=== PATIENT | male | born 1955 | race Caucasian/White ===

== ENCOUNTER 2017-09-05 22:32 | Inpatient (IN) | payer OTHER ==
[~2017-09-05 22:32] MED LIST: ISOVUE-370 76%-LOCM 1 ML ONE
[2017-09-05] MEDS ORDERED: Promethazine HCl 25 MG/ML VIAL ONE (22:56)
[2017-09-05] MEDS ORDERED: Ondansetron ODT 8 MG TAB ONE (22:56)
--- NOTE | 2017-09-05 23:14 | RAD ---
PORTABLE CHEST: 09/05/17 HISTORY: Lung cancer. On chemotherapy. No comparison chest films available. There is a mass density in the right lower lung. This would correspond to the history of lung cancer. The left lung appears clear. there is no evidence of vascular congestion or edema. Heart size within normal range. IMPRESSION: Opacity overlying the right lower lung is consistent with known history of lung cancer. Associated in flammatory infiltrate cannot be excluded. POS: [facility]
[2017-09-05 23:16] LABS: #Eosinphils 0.1 thou/uL (0.0-0.7); #Lymphocytes 0.7 thou/uL (1.20-3.40); #Monocytes 0.4 thou/uL (0.11-0.59); #Neutrophils 8.4 thou/uL (1.40-6.50); %Basophils 0.4 % (0.0-1.0); %Eosinophils 0.7 % (0.0-10.0); %Lymphocytes 7.3 % (21.0-51.0); %Monocytes 3.9 % (0.0-10.0); %Neutrophils 87.7 % (42.0-75.0); Mean Corpuscular HGB CONC 33.1 g/dL (32.0-36.0); Mean Corpuscular Hemoglobin 29.2 pg (27.0-31.0); Mean Corpuscular Volume 88.1 fl (80.0-94.0); Mean Platelet Volume 6.4 fL (7.4-10.4); Platelet Count 317 thou/uL (130-400); RBC Distribution Width 12.3 % (11.5-14.5); Red Blood Cell (RBC) Count 4.82 mill/uL (4.70-6.10); White Blood Cell (WBC) Count 9.6 thou/uL (4.8-10.8)
[2017-09-05 23:19] LABS: ALT (SGPT) 24 U/L (8-55); AST (SGOT) 23 U/L (5-34); Alkaline Phosphatase 89 U/L (40-150); Anion Gap 15 mmol/L (10-20); BUN (Urea Nitrogen) 19 mg/dL (8.4-25.7); Bilirubin, Total 1.5 mg/dL (0.2-1.2); CK (CPK) 56 U/L (30-200); Calc. Creatinine Clearance 0 mL/min (70-130); Calcium 9.9 mg/dL (7.8-10.44); Carbon Dioxide 30 mmol/L (22-29); Chloride 92 mmol/L (98-107); Estimated GFR-MDRD Greater than 90; Globulin 3.8 g/dL (2.4-3.5); Glucose 139 mg/dL (70-105); Lipase 20 U/L (8-78); Potassium 5.1 mmol/L (3.5-5.1); Protein, Total 7.8 g/dL (6.0-8.3); Sodium 132 mmol/L (136-145)
--- NOTE | 2017-09-05 23:57 | CT ---
CT ABDOMEN AND PELVIS WITH IV CONTRAST: 09/05/17 History: Lung cancer on chemo. Abdominal pain, constipation Images through the lung bases show patchy atelectasis and/or infiltrate in the right lung base. Liver shows a low density lesion in the posterior left lobe of the liver along the posterior margin m easuring up to 2 cm. There are other scattered low density foci which are subcentimeter and indetermi zechariah seen throughout the right lobe. Spleen and pancreas are unremarkable. Stomach unremarkable. Adr enal glands unremarkable. Review of the kidneys shows no evidence of hydronephrosis. There is a 2.8 cm cyst posterior left kidn ey. There is a complex lesion involving the mid right renal cortex measuring 1.8 cm. There is enhancing n odule associated with this low density lesion. This is therefore a complex and suspicious lesion. Small bowel loops are normal caliber. The colon is distended and appears predominantly fluid filled although there is evidence of stool in the left colon. No evidence of mural thickening or edema. Urinary bladder shows mild bladder wall thickening which is nonspecific. Prostate is upper normal siz e. Aorta and retroperitoneum appear unremarkable. IMPRESSION: 1. Patchy atelectasis and/or infiltrate in the right lung base. 2. A complex suspicious lesion involving the right kidney. There is an enhancing nodule associat ed with this low density lesion. Neoplasm cannot be excluded. 3. Nonspecific fluid filled distention of the right and transverse colon. Left colon has scatter ed stool and gas without significant distention. 4. Indeterminate liver lesions. Mets not excluded. 5. Mild urinary bladder wall thickening. POS: [facility]
[2017-09-06] MEDS ORDERED: D5 1/2 NS w/20 mEq KCL 1,000 ML IV SCH (01:45)
[2017-09-06] MEDS ORDERED: Ondansetron ODT 4 MG TAB SL PRN (01:45)
[2017-09-06] MEDS ORDERED: Promethazine HCl 25 MG/ML VIAL SLOW IVP PRN (01:45)
[2017-09-06] MEDS ORDERED: Ondansetron HCl/PF 4 MG/2 ML Vial IVP PRN ×2 (01:45→06:55)
[2017-09-06] MEDS ORDERED: Milk Of Magnesia 30 ML UDCUP PO PRN (01:48)
[2017-09-06] MEDS ORDERED: Acetaminophen 325 MG TAB PO PRN (01:48)
[2017-09-06] MEDS ORDERED: HYDROcodone/Acetaminophen 5/325 mg Tablet PO PRN (01:48)
[2017-09-06] MEDS: Morphine IR Tab 15 MG TAB PO PRN ×2 (02:37→19:16)
[2017-09-06 02:48] VITALS: BMI 21.9
[2017-09-06 04:19] LABS: #Lymphocytes 0.7 thou/uL (1.20-3.40); #Monocytes 0.2 thou/uL (0.11-0.59); #Neutrophils 5.9 thou/uL (1.40-6.50); %Basophils 0.1 % (0.0-1.0); %Eosinophils 0.4 % (0.0-10.0); %Lymphocytes 10.1 % (21.0-51.0); %Monocytes 3.6 % (0.0-10.0); %Neutrophils 85.8 % (42.0-75.0); Hemoglobin 11.9 g/dL (14.0-18.0); Mean Corpuscular HGB CONC 33.4 g/dL (32.0-36.0); Mean Corpuscular Hemoglobin 29.4 pg (27.0-31.0); Mean Corpuscular Volume 88.2 fl (80.0-94.0); Mean Platelet Volume 6.3 fL (7.4-10.4); Platelet Count 254 thou/uL (130-400); RBC Distribution Width 12.2 % (11.5-14.5); Red Blood Cell (RBC) Count 4.05 mill/uL (4.70-6.10); White Blood Cell (WBC) Count 6.8 thou/uL (4.8-10.8)
[2017-09-06 04:38] LABS: Anion Gap 11 mmol/L (10-20); BUN (Urea Nitrogen) 16 mg/dL (8.4-25.7); Calc. Creatinine Clearance 103 mL/min (70-130); Calcium 8.3 mg/dL (7.8-10.44); Carbon Dioxide 28 mmol/L (22-29); Chloride 97 mmol/L (98-107); Estimated GFR-MDRD Greater than 90; Glucose 130 mg/dL (70-105); Potassium 4.3 mmol/L (3.5-5.1); Sodium 132 mmol/L (136-145)
[2017-09-06] MEDS: Senokot 8.6 MG TAB PO PRN ×2 (06:00→21:17)
[2017-09-06] MEDS ORDERED: Eucerin (Mineral Oil/Petrolatum,White) 30 gm Jar TOP PRN (06:54)
[2017-09-06] MEDS ORDERED: Diabetic Tussin 200 MG/10 ML UDCUP PO PRN (06:54)
[2017-09-06] MEDS ORDERED: Sodium Chloride 0.65% Nasal 44 ML BOT EA NARE PRN (06:54)
[2017-09-06] MEDS ORDERED: Loratadine 10 MG TAB PO PRN (06:54)
[2017-09-06] MEDS ORDERED: Chloraseptic Spray 180 ml Bottle PO PRN (06:54)
[2017-09-06] MEDS ORDERED: hydrALAZINE 20 MG/ML VIAL SLOW IVP PRN (06:54)
[2017-09-06] MEDS ORDERED: Fleet Enema 133 ML BOT PR PRN (06:54)
[2017-09-06] MEDS ORDERED: Mag-Al 1200 mg/1200 mg/30 ML UDCUP PO PRN (06:54)
[2017-09-06] MEDS ORDERED: Bisacodyl 10 MG SUPP PR PRN (06:54)
[2017-09-06] MEDS ORDERED: Temazepam 15 MG CAP PO PRN (06:54)
[2017-09-06] MEDS ORDERED: Artificial Tears 18 DROP/0.9 ML EA EYE PRN (06:54)
[2017-09-06] MEDS ORDERED: Ondansetron ODT 4 MG TAB PO PRN (06:55)
[2017-09-06] MEDS ORDERED: Promethazine HCl 25 MG/ML VIAL IM/IV PRN (06:56)
[2017-09-06] MEDS ORDERED: Fleet Enema 133 ML BOT PR SCH (08:30)
[2017-09-06] MEDS: Polyethylene Glycol 3350 17 GM Packet PO SCH (08:44)
[2017-09-06] MEDS: Docusate 100 MG CAP PO SCH ×2 (08:45→21:17)
[2017-09-06] MEDS: Enoxaparin Sodium 40 MG/0.4 ML SYRINGE SC SCH (08:45)
[2017-09-06] MEDS: Dextrose 5 % And 0.9 % NaCl 1,000 ML IV SCH ×2 (08:54→17:47)
[2017-09-06] MEDS ORDERED: Dexamethasone 4 MG TAB PO SCH (09:00)
[2017-09-06] MEDS ORDERED: Finasteride 5 MG TAB PO SCH ×2 (09:00→21:00)
[2017-09-06] MEDS ORDERED: Tamsulosin HCl 0.4 MG CAP PO SCH ×2 (09:00→21:00)
--- NOTE | 2017-09-06 12:29 | SS ---
PRIMARY CARE PHYSICIAN: The patient's primary care physician in [place], [place]. PRIMARY ONCOLOGIST: At [facility]. DATE OF ADMISSION: 09/06/2017 at 1:22 a.m. REASON FOR ADMISSION: Nausea, vomiting, dehydration, and constipation. HISTORY OF PRESENT ILLNESS: This is a 62-year-old male, who has recent diagnosis of nonsmall cell regina ng cancer, which was diagnosed with a bronchoscopy. Subsequently, the patient was following at [facility]. He reports that he received a 30 cycles of radiation therapy and during that period, the patient received weekly 4 cycles of chemotherapy. The patient had a strong chemotherapy given o n last Friday. The patient was taking short-acting morphine sulfate and long-acting morphine sulfat e. The patient was feeling constipated. His last good bowel movement was on Friday and he had only scant amount of bowel movement. He was feeling generalized vague, lower abdominal discomfo rt. His appetite was reduced. He also lost several pounds since diagnosis of lung cancer. He was n ot having any fever or chills. He denies any black tarry stool. He denies any vomiting of blood. H e denies any nausea. He denies any chest pain, palpitations, shortness of breath. The patient reports that he is following at [facility] and he was told that his cancer is shrinking and his next chemotherapy appointment is 2 weeks. The patient also reports that he was told that he has spot over his kidney. This patient came to emergency room last night with complaint of constipation, nausea, and vomiting. In the emergency room, he was completely hemodynamically stable. He had CT of the abdomen and pelvi s, which showed right lower lobe atelectasis, complex lesion over right kidney and nonspecific fluid filled distention of right and transverse colon, mild urinary bladder wall thickening, though patient denies any UTI symptoms. His chest x-ray in the emergency room showed right lower lung mass consist ent with his history of lung cancer. He was afebrile in the emergency room. In the emergency room, he was given IV fluid, Phenergan, Zofran, and subsequently he was admitted to Oncology floor. When this morning I saw at that time, the patient was completely asymptomatic. He was not having any significant lower abdominal pain. He did not have any nausea and vomiting, though he does not have any bowel movement yet. He received some stool softener earlier, he was getting IV fluid. REVIEW OF SYSTEMS: The following complete review of systems was negative, unless otherwise mentioned in the HPI or below: Constitutional: Weight loss or gain, ability to conduct usual activities. Skin: Rash, itching. Eyes: Double vision, pain. ENT/Mouth: Nose bleeding, neck stiffness, pain, tenderness. Cardiovascular: Palpitations, dyspnea on exertion, orthopnea. Respiratory: Shortness of breath, wheezing, cough, hemoptysis, fever or night sweats. Gastrointestinal: Poor appetite, abdominal pain, heartburn, nausea, vomiting, constipation, or diarr hea. Genitourinary: Urgency, frequency, dysuria, nocturia. Musculoskeletal: Pain, swelling. Neurologic/Psychiatric: Anxiety, depression. Allergy/Immunologic: Skin rash, bleeding tendency. Please see my HPI for pertinent positive and negative. All other review of systems reviewed and nega tive except as mentioned in the HPI. PAST MEDICAL HISTORY: Hypertension, benign enlargement of prostate, history of lung cancer, non-smal l cell lung cancer, status post radiation therapy and ongoing chemotherapy, and mitral regurgitation. PAST SURGICAL HISTORY: Appendicectomy. PAST PSYCHIATRIC HISTORY: Reviewed and negative. SOCIAL HISTORY: The patient is and lives at home with family. No history of tobacco, alcoho l, or illicit drug abuse. FAMILY HISTORY: No strong family history of premature coronary artery disease, stroke or cancer. ALLERGIES: No known drug allergy. CURRENT HOME MEDICATIONS: Proscar 5 mg p.o. daily, morphine sulfate extended release 60 mg twice jin ly, Flomax 0.4 mg p.o. daily, lisinopril 40 mg p.o. daily, Decadron 4 mg twice daily after chemo, mor phine sulfate immediate release 15 mg q.6 hourly p.r.n., Zofran ODT 8 mg q.8 hourly p.r.n. EMERGENCY ROOM COURSE: The patient has received Phenergan 25 mg, IV fluid 2 liter, and Zofran 8 mg. PHYSICAL EXAMINATION: VITAL SIGNS: On arrival, blood pressure 124/94, pulse 98, respiratory rate 20, temperature 98.2, sat uration 95% on room air, weight 71.2 kilograms. GENERAL: The patient is currently alert, awake, no obvious acute distress. HEAD: Normocephalic, atraumatic. EYES: Pupils round, reactive to light. Extraocular muscle intact. ENT: Oropharynx within normal limits. Moist mucous membranes. No oral lesion, no pharyngeal erythe ma, no exudate. NECK: Supple, no JVD, no thyromegaly, no carotid bruit. No jugular venous distention. LUNGS: Clear to auscultation without any rhonchi or rales. CARDIAC: S1 and S2 regular. Systolic murmur present parasternally as well as at apex. No gallop, n o rub. ABDOMEN: Soft, bowel sounds present, lower abdominal discomfort noted. No peritoneal sign, no guard ing, no rigidity, no rebound. BACK: Unremarkable. No CVA tenderness. EXTREMITIES: Upper extremity passive movement of all joints are normal. Lower extremity, no edema. Good peripheral pulsation. SKIN: No skin rash. HEMATOLOGIC: No lymphadenopathy. NEUROLOGIC: The patient is alert, oriented x3. Cranial nerves II-XII intact. Motor and sensation w ithin normal limits. No focal neurological deficit noted. SIGNIFICANT LABORATORY DATA: Chest x-ray showing right-sided lung mass consistent with history of regina ng mass. CT of the abdomen and pelvis showing at right atelectasis complex lesion in the right kidne y, which is all chronic per patient. Nonspecific fluid filled distention of colon. No small-bowel o bstruction. CBC: WBC is 9.6, hemoglobin 14.0, platelet 317, and repeated as CBC is also unremarkable, though hem oglobin 11.9 after hydration. BMP: Sodium 132, potassium 5.1, chloride 92, carbon dioxide 30, anion gap 15, BUN 19, creatinine 0.8 3, glucose 139, calcium 9.5. LFT: AST 23, ALT 24, alkaline phosphatase 89, albumin 4.0, lipase 20, and repeat BMP: Sodium 132 an d chloride 97. IMPRESSION: 1. Severe constipation without any obstruction likely due to opioid induced. The patient will be gi marcel Fleet enema now and we will continue to give him stool softener. I instructed this patient to ta ke MiraLax, Colace, Milk of Magnesia stool softener daily basis while on chronic narcotic therapy. A t this point, the patient does not have any acute abdomen and if after Fleet enema, the patient feels better then we will consider discharging him home later on today. 2. Complex lesion on the right kidney. Per patient, he was told at [facility] that he has this typ e of lesion. I advised him to follow up with his oncologist at [facility]. Here we have consulted Dr. Cote as well for opinion, but patient prefers everything to be done at [facility], even if he needs Urology then he will prefer at [facility] 3. Dehydration. The patient already received IV fluid and we will continue IV fluid until patient i s in hospital. 4. 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 5. Anemia, normocytic, normochromic. The patient will continue multivitamin therapy. 6. History of lung cancer on chemotherapy. He has finished radiation therapy at [facility]. He is following at [facility]. He wants to follow up with their, here locally Dr. Cote is consulted. 7. Benign enlargement of prostate. He will continue his Proscar and Flomax as per home dosage. 8. Hypertension. I advised him to take lisinopril 40 mg p.o. daily, which he is taking at home if b lood pressure permits. I advised him to hold blood pressure medication if blood pressure is less natalie n 120. 9. Mitral regurgitation. The patient reports that he is planned for mitral valve replacement as an outpatient basis. 10. Deep venous thrombosis prophylaxis. Lovenox 40 mg subcu daily. 11. Gastrointestinal prophylaxis. Pepcid 20 mg b.i.d. CODE STATUS: The patient is FULL CODE. The patient is making his decision by himself. Disposition plan likely later on today. DATE OF ADMISSION: 09/06/2017 at 1:22 p.m. DATE OF DISCHARGE: 09/06/2017 DISCHARGE DISPOSITION: Home. PRIMARY DISCHARGE DIAGNOSES: Constipation due to opiate therapy, dehydration, hyponatremia, and comp anup lesion over right kidney. SECONDARY DISCHARGE DIAGNOSES: Lung cancer, benign enlargement of prostate, chronic pain medication, history of lung cancer on chemotherapy, hypertension, and benign enlargement of prostate. PRIMARY PROCEDURE/OPERATION: None. RADIOLOGICAL INVESTIGATIONS: CT of the abdomen and pelvis. SIGNIFICANT LABORATORY DATA: Please see above. TEST RESULTS PENDING ON DISCHARGE: None. DISCHARGE MEDICATION: The patient will continue all his home medication including dexamethasone 4 mg p.o. b.i.d., Colace 100 mg p.o. b.i.d., morphine sulfate IR 15 mg q.6 hourly p.r.n., morphine sulfat e 60 mg extended release q.12 hourly, Zofran 8 mg q.8 hours p.r.n., MiraLax 17 grams p.o. daily, Pros car 5 mg p.o. daily, Flomax 0.4 mg p.o. daily, and lisinopril 40 mg p.o. daily. CONTRAINDICATIONS: None. CODE STATUS: FULL CODE. INPATIENT OCTAVE BOARD ASSEMBLER: Dr. Cote. TEST RESULT PENDING ON DISCHARGE: None. ALLERGIES: No known drug allergy. DISCHARGE PLAN: Post hospital, the patient will follow up with his primary care physician and oncolo gist at [facility]. HOSPITAL COURSE: Please see HPI from above. If patient feels better with current management plan an d treatment, then he will be discharged home later on today.
--- NOTE | 2017-09-06 18:26 | CON ---
DATE OF CONSULTATION: 09/06/2017 REASON FOR CONSULTATION: Non-small cell lung cancer. HISTORY: This is a 62-year-old male who was diagnosed I believe non-small cell carcinoma o f the lung at [facility]. He was initially treated with weekly chemotherapy and radiation therapy and was recently given chemotherapy with full dose Taxol, carboplatin and Tecentriq. The pat genia is also taking morphine for pain control and was taking Zofran at home for nausea. He was admit molly with nausea, vomiting yesterday. Currently, he is on 4 mg of Zofran p.r.n. and Phenergan. I do not really have detailed information on this patient. PHYSICAL EXAMINATION: GENERAL: The patient is alert and oriented. HEENT: Unremarkable. EYES: Extraocular movements intact. Pupils equal in size. NECK: No thyromegaly. LYMPH NODES: Not palpable in cervical, supraclavicular, axillary and inguinal areas. SKIN: No petechiae. No purpuric spots. CHEST: No deformity. LABORATORY DATA: CBC shows WBC of 6800 with hemoglobin of 11.9 grams and platelet count of 254,000. Chemistry profile showed normal BUN and creatinine and calcium. Electrolytes are also unremarkable. ASSESSMENT AND RECOMMENDATIONS: This patient has nausea and vomiting is likely related to chemothera py and morphine. He should be managed symptomatically. I will change his Zofran to 8 mg q.8 with de xamethasone 5 mg given with each dose of Zofran. If nausea, vomiting is not controlled, he might nee d MRI of the brain. This patient will continue his care at [facility].
[2017-09-06] MEDS: ONDANSETRON HCL IVPB SCH (21:14)
[2017-09-06] MEDS: SODIUM CHLORIDE 0.9% IVPB SCH (21:14)
[2017-09-06] MEDS: DEXAMETHASONE IVPB SCH (21:14)
[2017-09-06] MEDS: Famotidine 20 MG TAB PO SCH (21:18)
[2017-09-07] MEDS: Dextrose 5 % And 0.9 % NaCl 1,000 ML IV SCH (06:55)
[2017-09-07] MEDS: ONDANSETRON HCL IVPB SCH ×2 (06:55→14:02)
[2017-09-07] MEDS: DEXAMETHASONE IVPB SCH ×2 (06:55→14:02)
[2017-09-07] MEDS: SODIUM CHLORIDE 0.9% IVPB SCH ×2 (06:55→14:02)
[2017-09-07] MEDS: Morphine IR Tab 15 MG TAB PO PRN ×2 (06:57→14:02)
[2017-09-07 08:46] VITALS: TEMP 98
[2017-09-07] MEDS: Famotidine 20 MG TAB PO SCH (09:03)
[2017-09-07] MEDS: Polyethylene Glycol 3350 17 GM Packet PO SCH (09:03)
[2017-09-07] MEDS: Docusate 100 MG CAP PO SCH (09:03)
[2017-09-07] MEDS: Enoxaparin Sodium 40 MG/0.4 ML SYRINGE SC SCH (09:04)
--- NOTE | 2017-09-07 10:42 | PDOC.PN ---
- Subjective Encounter Start Date: 09/07/17 Encounter Start Time: 09:00 Subjective: no nausea or vomiting, no abd pain -: had 2 bm's -: is amb in hallway - Objective MAR Reviewed: Yes Vital Signs & Weight: Vital Signs (12 hours) Temp Pulse Resp BP Pulse Ox 09/07/17 08:20 98.0 F 95 20 109/83 96 09/07/17 08:00 98.9 F 90 18 Weight Admit Weight 157 lb 5 oz Weight 157 lb 5 oz I&O: 09/06/17 09/07/17 09/08/17 06:59 06:59 06:59 Intake Total 450 3630 Output Total 700 950 Balance -250 2680 Result Diagrams: 09/06/17 03:53 09/06/17 03:53 Phys Exam - Physical Examination HEENT: PERRLA, moist MMs Neck: no JVD, supple Respiratory: no wheezing, no rales Cardiovascular: RRR, no significant murmur Gastrointestinal: soft, non-tender, positive bowel sounds Musculoskeletal: no edema, pulses present Neurological: non-focal, moves all 4 limbs Psychiatric: normal affect, A&O x 3 Dx/Plan (1) Nausea & vomiting Code(s): R11.2 - NAUSEA WITH VOMITING, UNSPECIFIED Status: Resolved (2) Constipation due to opioid therapy Code(s): K59.03 - DRUG INDUCED CONSTIPATION; T40.2X5A - ADVERSE EFFECT OF OTHER OPIOIDS, INITIAL ENCOUNTER Status: Acute (3) BPH (benign prostatic hyperplasia) Code(s): N40.0 - BENIGN PROSTATIC HYPERPLASIA WITHOUT LOWER URINRY TRACT SYMP Status: Chronic Qualifiers: Lower urinary tract symptom presence: symptoms absent Qualified Code(s): N40.0 - Benign prostatic hyperplasia without lower urinary tract symptoms (4) Lung cancer Code(s): C34.90 - MALIGNANT NEOPLASM OF UNSP PART OF UNSP BRONCHUS OR LUNG Status: Chronic Comment: non small cell lung cancer treated at [facility] (5) Mitral regurgitation Status: Chronic Qualifiers: Cardiac valve disease etiology: etiology unspecified Qualified Code(s): I34.0 - Nonrheumatic mitral (valve) insufficiency - Plan hemostable -: may dc home if tolerating oral diet today * .
[2017-09-07 12:16] VITALS: BP 118/74
--- NOTE | 2017-09-07 16:04 | DIS ---
DATE OF ADMISSION: 09/06/2017 DATE OF DISCHARGE: 09/07/2017 DISCHARGE DISPOSITION: To home. PRIMARY DISCHARGE DIAGNOSES: Intractable nausea and vomiting, resolved; constipation due to opioids, resolved. SECONDARY DISCHARGE DIAGNOSES: History of non-small cell lung cancer treated at [facility], chron ic mitral regurgitation, benign prostatic hypertrophy. PROCEDURES DONE DURING HOSPITALIZATION: Chest x-ray done showed opacity overlying the right lower regina ng consistent with known history of lung cancer. CT of the abdomen and pelvis done showed complex gaines spicious lesion involving the right kidney and indeterminate liver lesions, mets could not be exclude d. H&H of 12 and 36, platelet count 254, MCV is 88. Discharge BUN of 16, creatinine 0.7. INPATIENT CONSULTS: Dr. Sabillon for Oncology. DISCHARGE PLAN: Patient to follow up with his oncologist at [facility]. BRIEF COURSE DURING HOSPITALIZATION: Patient initially came to ER with complaints of nausea, vomitin g, and constipation. He was admitted to oncology floor. He has had CT of the abdomen and pelvis don e, which confirmed findings of constipation, otherwise, no other acute abnormalities were seen. The patient has known history of right kidney mass, likely metastasis of his lung cancer. He was initial ly kept n.p.o. and was slowly weaned into solid food. He was also evaluated by Dr. Sabillon. This a fternoon, he had his solid food and is hemodynamically stable. He is ambulating as well. His nausea and vomiting has completely resolved. The patient has had two bowel movements and has been advised to take Colace and MiraLax for bowel regimen when he is taking morphine for pain relief for his cance r. He is ambulating in the hallway and will be shortly discharged home. Please see a [id number] d ocumentation on [facility] for the day of discharge.
== END 2017-09-07 15:45 | disposition home or self-care (01) | DRG 392 ==
LOC: ERS 22:32 → ONC 09-06 01:22
PROVIDERS: ADMIT Internal Medicine; ATTEND Internal Medicine
DX: K59.03 Drug induced constipation (principal); C34.31 Malignant neoplasm of lower lobe, right bronchus or lung; E22.2 Syndrome of inappropriate secretion of antidiuretic hormone; Y92.89 Other specified places as the place of occurrence of the external cause; T40.2X5A Adverse effect of other opioids, initial encounter; N28.9 Disorder of kidney and ureter, unspecified; E86.0 Dehydration; E87.8 Other disorders of electrolyte and fluid balance, not elsewhere classified; N40.0 Benign prostatic hyperplasia without lower urinary tract symptoms; I34.0 Nonrheumatic mitral (valve) insufficiency; D64.9 Anemia, unspecified; I10 Essential (primary) hypertension
CPT/HCPCS: 36415; 71045; 74177; 80048; 80053; 82550; 83690; 85025; 96361; 96365; A4216; J1100; J1650; J2405; J2550; J7042; J7050; J8540

== ENCOUNTER 2017-10-03 07:53 | Inpatient (IN) | payer OTHER ==
[2017-10-03 09:06] LABS: #Lymphocytes 0.5 thou/uL (1.20-3.40); #Monocytes 0.2 thou/uL (0.11-0.59); %Basophils 0.1 % (0.0-1.0); %Eosinophils 0.5 % (0.0-10.0); %Lymphocytes 5.3 % (21.0-51.0); %Monocytes 2.6 % (0.0-10.0); %Neutrophils 91.5 % (42.0-75.0); Hemoglobin 11.9 g/dL (14.0-18.0); Mean Corpuscular HGB CONC 31.8 g/dL (32.0-36.0); Mean Corpuscular Hemoglobin 27.4 pg (27.0-31.0); Mean Corpuscular Volume 86.1 fL (78.0-98.0); Mean Platelet Volume 6.6 fL (7.4-10.4); Platelet Count 349 thou/uL (130-400); RBC Distribution Width 13.1 % (11.5-14.5); Red Blood Cell (RBC) Count 4.33 mill/uL (4.70-6.10); White Blood Cell (WBC) Count 8.7 thou/uL (4.8-10.8)
[2017-10-03 09:08] LABS: INR-International Normal Ratio 1.1; Prothrombin Time 13.9 SEC (12.0-14.7)
[2017-10-03 09:15] LABS: ALT (SGPT) 13 U/L (8-55); AST (SGOT) 16 U/L (5-34); Albumin 3.5 g/dL (3.5-5.0); Alkaline Phosphatase 82 U/L (40-150); Anion Gap 15 mmol/L (10-20); BUN (Urea Nitrogen) 14 mg/dL (8.4-25.7); Bilirubin, Total 0.8 mg/dL (0.2-1.2); CK (CPK) 58 U/L (30-200); Calc. Creatinine Clearance 0 mL/min (70-130); Calcium 9.2 mg/dL (7.8-10.44); Carbon Dioxide 28 mmol/L (22-29); Chloride 88 mmol/L (98-107); Estimated GFR-MDRD Greater than 90; Globulin 3.7 g/dL (2.4-3.5); Glucose 131 mg/dL (70-105); Potassium 4.3 mmol/L (3.5-5.1); Protein, Total 7.2 g/dL (6.0-8.3); Sodium 127 mmol/L (136-145)
[2017-10-03 09:20] LABS: CKMB 0.9 ng/mL (0-6.6); Troponin I Less than 0.010 ng/mL (< 0.028)
--- NOTE | 2017-10-03 09:42 | RAD ---
RADIOGRAPH CHEST 1 VIEW: Date: 10/03/17 Time: 0912 HOURS HISTORY: 62-year-old male with lung cancer. COMPARISON: 09/05/17. FINDINGS: There is a defibrillation paddle over the central chest, and another one overlying the left lower allan g zone. The previously described spiculated pulmonary opacity in the right lower lung zone is now lar leland. Partial silhouetting of the right hemidiaphragm, new. No pulmonary edema. There is a new, small, faint, separate infiltrate in the lateral aspect of the right upper lobe now. There is a greater deg ree of shagginess of the right mediastinal border. No pulmonary vascular engorgement. No cardiomegaly . No pneumothorax. IMPRESSION: Interval increase in size of the density at the right lower lung zone. This may represent an acute in filtrate superimposed on the known lung cancer stated in the history. Recommend clinical correlation. TELMA [] POS: [facility]
[2017-10-03] MEDS ORDERED: Morphine IR Tab 15 MG TAB PO SCH (12:30)
[2017-10-03] MEDS ORDERED: Ondansetron HCl/PF 4 MG/2 ML Vial IVP PRN (12:55)
[2017-10-03] MEDS ORDERED: Ondansetron ODT 4 MG TAB PO PRN (12:55)
[2017-10-03] MEDS ORDERED: Milk Of Magnesia 30 ML UDCUP PO PRN (12:55)
[2017-10-03 12:56] LABS: Lactic Acid 1.5 mmol/L (0.5-2.2)
[2017-10-03] MEDS ORDERED: Sodium Chloride 0.9% 1,000 ML IV SCH (13:00)
[2017-10-03 13:04] LABS: Troponin I Less than 0.010 ng/mL (< 0.028)
[2017-10-03 15:30] LABS: Troponin I 0.011 ng/mL (< 0.028)
[2017-10-03] MEDS ORDERED: Ondansetron ODT 8 MG TAB PO PRN (17:29)
--- NOTE | 2017-10-03 18:45 | HP ---
PRIMARY CARE PHYSICIAN: Dr. Mcbride. PRESENTING COMPLAINT: Nausea and vomiting. HISTORY OF PRESENT ILLNESS: Ms. Esvin Cisneros is a 62-year-old male with a past medical history of hy pertension, non-small cell cancer of the lung cyst diagnosed in April of this year and undergoing c hemotherapy and radiation therapy. He last received chemotherapy on Friday and from Friday, he s tarted with multiple episodes of nausea, vomiting, and lightheadedness. He denied chest pain, shortn ess of breath, PND, orthopnea, lower extremity edema. Due to his continued symptoms, he desired to c ome to the emergency room today. At the emergency room, he was started on IV fluids and while in the emergency room, he was found to have tachycardia with irregularly irregular rhythm. EKG showed atri al fibrillation with rapid ventricular response. He was then cardioverted, converted to normal sinus rate afterwards. The reason he was cardioverted was due to hemodynamic instability. He had some co nfusion and so he was cardioverted. Afterwards, he became alert and well oriented. The patient was admitted to medicine service for further management. PAST MEDICAL HISTORY: Hypertension, non-small cell carcinoma. PAST SURGICAL HISTORY: Appendectomy. PAST PSYCHIATRIC HISTORY: None. SOCIAL HISTORY: Denies alcohol, tobacco or illicit drug use. ALLERGIES: None. HOME MEDICATIONS: Docusate 100 mg b.i.d., ondansetron 8 mg every 8 hours p.r.n. for nausea and vomit ing, MiraLax 17 grams daily, dexamethasone 4 mg b.i.d., morphine instant release tablet 50 mg q.6 gabby rs p.r.n. for pain, morphine sulfate extended release 60 mg after 12 hours. REVIEW OF SYSTEMS: All systems reviewed and negative except as stated in HPI. PHYSICAL EXAMINATION: GENERAL: Patient is in bed, not in any acute distress. VITAL SIGNS: Vital signs are within normal limits, respiratory rate is 18, pulse rate 89, blood pres sure 140/90. HEENT: Normocephalic, atraumatic. Not pale, anicteric. Moist mucous membranes. NECK: Supple, full range of movement. CARDIOVASCULAR: S1, S2 only. Regular rate and rhythm with a systolic murmur. No rubs or gallops. ABDOMEN: Normoactive, soft, nontender, nondistended. Bowel sounds normoactive. RESPIRATORY: Vesicular breath sounds bilaterally. No wheezes or rales. NEUROLOGIC: Alert and well oriented to time, place and person. No focal deficits. PSYCHIATRIC: Normal mood and affect. SKIN: Warm, dry, well-perfused. No rashes or lesions. MUSCULOSKELETAL: No edema. LABORATORY DATA: CBC and CMP were largely unremarkable. Initial lactic acid was 2.3, but with hydra tion improved to 1.5. TSH was 0.348 with normal T4, free. IMAGING: Chest x-ray showed some right lower lobe infiltrates (likely where his old non-small cell c ancer is located. EKG showed atrial fibrillation with rapid ventricular rate, but this is before car dioversion and after cardioversion, normal sinus rhythm. ASSESSMENT AND PLAN: 1. Atrial fibrillation with rapid ventricular response. 2. Persistent nausea and vomiting. 3. Hypertension. 4. Non-small cell cancer of the lung, currently undergoing chemotherapy and radiotherapy. The patie nt came in with nausea, vomiting, and dehydration leading into atrial fibrillation with RVR, which wa s aborted by cardioversion. He is now back to normal sinus rhythm. Of note, he had a history of [facility] ral valve prolapse surgery has been deferred until he finishes his chemo and radiation therapy. PLAN: 1. Continue hydration with normal saline. 2. Zofran p.r.n. for nausea and vomiting. 3. Get echocardiogram for IV diltiazem, metoprolol p.r.n. for tachycardia. 4. Monitor on telemetry unit. 5. Cardiology consult. 6. We will continue home medications and ensure patient is on adequate p.o. bowel regimen. CODE STATUS: FULL CODE. Deep venous thrombosis prophylaxis with subcutaneous Lovenox.
[2017-10-03] MEDS ORDERED: Dronedarone HCl 400 MG TAB PO SCH (19:30)
[2017-10-03] MEDS ORDERED: Warfarin Sodium 5 MG TAB PO SCH (19:30)
[2017-10-03] MEDS: Mirtazapine 30 MG TAB PO SCH (20:24)
[2017-10-03] MEDS: Famotidine 20 MG TAB PO SCH (20:25)
[2017-10-03] MEDS: Finasteride 5 MG TAB PO SCH (20:25)
[2017-10-03] MEDS: Senokot S 8.6-50 MG TAB PO SCH (20:25)
[2017-10-03] MEDS: Metoprolol Tartrate 25 MG TAB PO SCH (20:26)
[2017-10-03] MEDS: Tamsulosin HCl 0.4 MG CAP PO SCH (20:28)
[2017-10-03] MEDS: Dexamethasone 4 MG TAB PO SCH (20:28)
[2017-10-03] MEDS: Enoxaparin Sodium 80 MG/0.8 ML SYRINGE SC SCH (20:28)
[2017-10-03] MEDS ORDERED: Docusate 100 MG CAP PO SCH (21:00)
--- NOTE | 2017-10-04 02:19 | CON ---
DATE OF CONSULTATION: 10/03/2017 HISTORY OF PRESENT ILLNESS: Blayne Mcallister is 62-year-old white male with past history of hypertension and mitral valve prolapse with significant mitral regurgitation. He was referred to [facility], and he underwent evaluation for possible placement of a percutaneous mitral clip. However, with that evaluation, it was found to have non-small cell carcinoma of the lung and he has undergone radiation and chemotherapy at [facility]. He has never been a smoker. He has been hospitalized here with episodes of nausea and vomiting. He again today had nausea and vomiting and came to the emergency room with this. He was found to be tachycardic and in atrial fibrillation. He apparently had some confusion and hypotension. The decision was made to have him undergo cardioversion, which was performed in the emergency room. He has remained in sinus rhythm since that time. He denies any chest discomfort, shortness of breath, or palpitations. PAST MEDICAL HISTORY: Hypertension, non-small cell carcinoma of the lung, mitral valve prolapse with mitral regurgitation. OPERATIONS: Appendectomy. SOCIAL HISTORY: Does not smoke. 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 MEDICATIONS: Lisinopril 40 mg 1/2 daily (he started taking half a tablet since he has been on chemo and his blood pressure seemed to be very low), dexamethasone 4 mg b.i.d. p.r.n., Proscar 5 mg q.p.m., morphine tablets 15 mg q.6 hours p.r.n., morphine sulfate 60 mg ER q.12 hours, Prilosec 20 daily, Zofran 8 mg p.r.n., MiraLax 17 grams daily, Flomax 0.4 daily, senna plus. ALLERGIES: None. REVIEW OF SYSTEMS: A 10-point review of systems, otherwise unremarkable. PHYSICAL EXAMINATION: VITAL SIGNS: 106/60, pulse 102, sinus rhythm. HEENT: PERRL. NECK: Supple. LUNGS: Chest is clear. CARDIAC: S1 and S2 are normal without any S3 or S4. There is a 2-3/6 holosystolic murmur along the left sternal border and at the apex. ABDOMEN: Normal bowel sounds without tenderness or organomegaly. EXTREMITIES: Revealed no clubbing, cyanosis, or edema. NEUROLOGIC: Grossly intact. SKIN: Warm and dry. LABORATORY DATA: EKG on presentation revealed atrial fibrillation with fast ventricular response of 135 per minute with nonspecific T-wave changes. EKG after cardioversion revealed normal sinus rhythm with rate of 92 per minute with left atrial enlargement. Hemoglobin 11.9, hematocrit 37.3, white count 8700, platelets 349,000. INR 1.1. Troponin I is negative x3. TSH was low at 0.3480; however, free T4 is normal. BNP 1079.8. Sodium 127, potassium 4.3, chloride 99, carbon dioxide 28, BUN 14, creatinine 0.81, glucose 131. IMPRESSION: 1. Atrial fibrillation with fast ventricular response with hypotension and cardioversion in the emergency room. He continues to have resting tachycardia. 2. Mitral valve prolapse with significant mitral regurgitation, he has been evaluated for mitral clip. 3. Small-cell carcinoma of the lung, currently undergoing radiation and chemotherapy. 4. Hypertension with the need to reduce lisinopril dose recently. 5. Persistent nausea and vomiting after chemotherapy. RECOMMENDATIONS: Echocardiogram will be performed to assess his left ventricular function as well as severity of mitral regurgitation. With his resting tachycardia, we will add low dose beta-al and reduces his lisinopril dose. Also, he will be placed on Multaq tried to suppress the atrial fibrillation, although this may need to be changed depending upon his left ventricular function. Since this is presumably valvular atrial fibrillation, to be started on Lovenox 1 mg/kg b.i.d. and Coumadin. MTDD
[2017-10-04] MEDS: Morphine IR Tab 15 MG TAB PO PRN (04:01)
[2017-10-04 05:33] LABS: #Lymphocytes 0.4 thou/uL (1.20-3.40); #Monocytes 0.1 thou/uL (0.11-0.59); #Neutrophils 3.9 thou/uL (1.40-6.50); %Eosinophils 0.1 % (0.0-10.0); %Monocytes 2.6 % (0.0-10.0); %Neutrophils 89.3 % (42.0-75.0); Hemoglobin 10.7 g/dL (14.0-18.0); Mean Corpuscular Volume 84.8 fL (78.0-98.0); Mean Platelet Volume 6.3 fL (7.4-10.4); Platelet Count 276 thou/uL (130-400); RBC Distribution Width 13.1 % (11.5-14.5); Red Blood Cell (RBC) Count 3.81 mill/uL (4.70-6.10); White Blood Cell (WBC) Count 4.4 thou/uL (4.8-10.8)
[2017-10-04 05:55] LABS: Anion Gap 12 mmol/L (10-20); BUN (Urea Nitrogen) 12 mg/dL (8.4-25.7); Calc. Creatinine Clearance 121 mL/min (70-130); Calcium 8.8 mg/dL (7.8-10.44); Carbon Dioxide 26 mmol/L (22-29); Chloride 102 mmol/L (98-107); Estimated GFR-MDRD Greater than 90; Glucose 110 mg/dL (70-105); Potassium 4.8 mmol/L (3.5-5.1); Sodium 135 mmol/L (136-145)
[2017-10-04 05:56] LABS: INR-International Normal Ratio 1.1; Prothrombin Time 14.5 SEC (12.0-14.7)
[2017-10-04] MEDS: Famotidine 20 MG TAB PO SCH ×2 (08:01→20:03)
[2017-10-04] MEDS: Dronedarone HCl 400 MG TAB PO SCH ×2 (08:01→17:29)
[2017-10-04] MEDS: Dexamethasone 4 MG TAB PO SCH (08:01)
[2017-10-04] MEDS: Metoprolol Tartrate 25 MG TAB PO SCH ×2 (08:02→22:25)
[2017-10-04] MEDS: Polyethylene Glycol 3350 17 GM Packet PO SCH (08:03)
[2017-10-04] MEDS: Senokot S 8.6-50 MG TAB PO SCH ×3 (08:03→21:03)
[2017-10-04] MEDS: Enoxaparin Sodium 80 MG/0.8 ML SYRINGE SC SCH ×2 (08:04→20:04)
[2017-10-04] MEDS ORDERED: Lisinopril 10 MG TAB PO SCH (09:00)
[2017-10-04] MEDS ORDERED: Enoxaparin Sodium 40 MG/0.4 ML SYRINGE SC SCH (09:00)
[2017-10-04] MEDS ORDERED: Lisinopril 20 MG TAB PO SCH (09:00)
--- NOTE | 2017-10-04 09:22 | PDOC.PN ---
- Subjective Encounter Start Date: 10/04/17 Encounter Start Time: 09:21 62 M w Non-small cell Lung cancer, MVP with significant regurgitation presenting with nausea and vomiting and found to be in A fib w RVR in the ED. He became confused so was converted using synchronized cardioversion. He has been reviewed by Cardiology and started on Coumadin for Valvular A fib. No complaints today. No acute events overnight. - Objective Resuscitation Status: Resuscitation Status FULL:Full Resuscitation MAR Reviewed: Yes Vital Signs & Weight: Vital Signs (12 hours) Temp Pulse Resp BP Pulse Ox 10/04/17 04:00 98.0 F 91 12 106/62 95 10/04/17 00:00 97.3 F L 91 18 112/71 94 L Weight Weight 149 lb I&O: 10/03/17 10/04/17 10/05/17 06:59 06:59 06:59 Intake Total 800 Output Total 1175 Balance -375 Result Diagrams: 10/04/17 05:08 10/04/17 05:08 Phys Exam - Physical Examination Constitutional: NAD HEENT: moist MMs, sclera anicteric Neck: supple, full ROM Respiratory: no wheezing, no rales, no rhonchi, clear to auscultation bilateral Cardiovascular: RRR, no rub systolic murmur Gastrointestinal: soft, non-tender, no distention, positive bowel sounds Musculoskeletal: no edema, pulses present Neurological: non-focal, moves all 4 limbs Psychiatric: normal affect, A&O x 3 Skin: no rash, normal turgor Dx/Plan (1) Atrial fibrillation with RVR Code(s): I48.91 - UNSPECIFIED ATRIAL FIBRILLATION Status: Acute (2) Lung cancer Code(s): C34.90 - MALIGNANT NEOPLASM OF UNSP PART OF UNSP BRONCHUS OR LUNG Status: Chronic Qualifiers: Laterality: right Lung location: lower lobe of lung Qualified Code(s): C34.31 - Malignant neoplasm of lower lobe, right bronchus or lung Comment: non small cell lung cancer treated at [facility] (3) Mitral regurgitation Status: Chronic Qualifiers: Cardiac valve disease etiology: etiology unspecified Qualified Code(s): I34.0 - Nonrheumatic mitral (valve) insufficiency (4) Nausea & vomiting Code(s): R11.2 - NAUSEA WITH VOMITING, UNSPECIFIED Status: Resolved Qualifiers: Vomiting type: unspecified Vomiting Intractability: non-intractable Qualified Code(s): R11.2 - Nausea with vomiting, unspecified - Plan cont current plan of care, plan discussed w/ family, out of bed/ambulate Continue Coumadin and Multaq. Daily INR Zofran PRN for nausea and vomiting f/u ECHO Review of Systems - Medications/Allergies Allergies/Adverse Reactions: Allergies Allergy/AdvReac Type Severity Reaction Status Date / Time No Known Allergies Allergy Verified 09/06/17 02:08 Medications: Current Medications Acetaminophen (Tylenol) 650 mg PO Q4H PRN PRN Reason: Headache/Fever or Pain Dexamethasone (Decadron) 4 mg PO BID [facility] Last Admin: 10/04/17 08:01 Dose: Not Given Dronedarone (Multaq) 400 mg PO BID[facility] Last Admin: 10/04/17 08:01 Dose: 400 mg Enoxaparin Sodium (Lovenox) 70 mg SC 0900,2100 [facility] Last Admin: 10/04/17 08:04 Dose: 70 mg Famotidine (Pepcid) 20 mg PO BID [facility] Last Admin: 10/04/17 08:01 Dose: 20 mg Finasteride (Proscar) 5 mg PO QPM [facility] Last Admin: 10/03/17 20:25 Dose: 5 mg Lisinopril (Zestril) 10 mg PO DAILY [facility] Last Admin: 10/04/17 08:01 Dose: 10 mg Magnesium Hydroxide (Milk Of Magnesium) 30 ml PO DAILYPRN PRN PRN Reason: Constipation Metoprolol Tartrate (Lopressor) 25 mg PO BID [facility] Last Admin: 10/04/17 08:02 Dose: 25 mg Mirtazapine (Remeron) 30 mg PO HS [facility] Last Admin: 10/03/17 20:24 Dose: 30 mg Morphine Sulfate (Ms Contin) 60 mg PO Q12HR [facility] Last Admin: 10/04/17 08:03 Dose: 60 mg Morphine Sulfate (Morphine Ir Tab) 15 mg PO Q6H PRN PRN Reason: Pain Last Admin: 10/04/17 04:01 Dose: 15 mg Ondansetron HCl (Zofran) 4 mg IVP Q6H PRN PRN Reason: Nausea/Vomiting Ondansetron HCl (Zofran Odt) 8 mg PO Q8H PRN PRN Reason: Nausea/Vomiting Pantoprazole Sodium (Protonix) 40 mg PO DAILY [facility] Last Admin: 10/04/17 08:03 Dose: 40 mg Polyethylene Glycol (Miralax) 17 gm PO DAILY [facility] Last Admin: 10/04/17 08:03 Dose: 17 gm Senna/Docusate Sodium (Senokot S) 2 tab PO 0900,1200 [facility] Last Admin: 10/04/17 08:03 Dose: 2 tab Senna/Docusate Sodium (Senokot S) 1 tab PO 2100 [facility] Last Admin: 10/03/17 20:25 Dose: 1 tab Tamsulosin HCl (Flomax) 0.4 mg PO QPM [facility] Last Admin: 10/03/17 20:28 Dose: 0.4 mg Warfarin Sodium (Coumadin) 5 mg PO 1700 [facility]
[2017-10-04 09:35] VITALS: BMI 21.3
--- NOTE | 2017-10-04 14:20 | EKG ---
Test Reason : Blood Pressure : / mmHG Vent. Rate : 092 BPM Atrial Rate : 092 BPM P-R Int : 196 ms QRS Dur : 094 ms QT Int : 370 ms P-R-T Axes : 058 061 057 degrees QTc Int : 457 ms Normal sinus rhythm Left atrial enlargement Borderline ECG post cardioversion Confirmed by LUIS SRINIVASAN, EARNESTINE ([id number]), science editor DENIS LAWSON ([id number]) on 10/04/2017 2:19:50 PM Referred By: Confirmed By:EARNESTINE SMITH MD
[2017-10-04] MEDS ORDERED: Sodium Chloride 0.9% 500 ML IV SCH ×3 (14:30→15:00)
[2017-10-04] MEDS: Warfarin Sodium 5 MG TAB PO SCH (17:30)
[2017-10-04] MEDS ORDERED: Sodium Chloride 0.9% 500 ML IVPB SCH (18:15)
[2017-10-04] MEDS: Mirtazapine 30 MG TAB PO SCH (20:02)
[2017-10-04] MEDS: Tamsulosin HCl 0.4 MG CAP PO SCH (20:03)
[2017-10-04] MEDS: Finasteride 5 MG TAB PO SCH (20:03)
[2017-10-04] MEDS ORDERED: Warfarin Sodium 5 MG TAB PO SCH (22:00)
[2017-10-05] MEDS: Morphine IR Tab 15 MG TAB PO PRN ×3 (03:54→15:45)
[2017-10-05 05:54] LABS: INR-International Normal Ratio 1.2; Prothrombin Time 14.9 SEC (12.0-14.7)
[2017-10-05 05:57] LABS: #Eosinphils 0.1 thou/uL (0.0-0.7); #Lymphocytes 0.5 thou/uL (1.20-3.40); #Monocytes 0.1 thou/uL (0.11-0.59); #Neutrophils 1.6 thou/uL (1.40-6.50); %Basophils 0.5 % (0.0-1.0); %Eosinophils 3.3 % (0.0-10.0); %Lymphocytes 22.9 % (21.0-51.0); %Monocytes 2.5 % (0.0-10.0); %Neutrophils 70.8 % (42.0-75.0); Hemoglobin 10.6 g/dL (14.0-18.0); Mean Corpuscular HGB CONC 32.6 g/dL (32.0-36.0); Mean Corpuscular Hemoglobin 27.7 pg (27.0-31.0); Mean Corpuscular Volume 84.9 fL (78.0-98.0); Mean Platelet Volume 6.1 fL (7.4-10.4); Platelet Count 255 thou/uL (130-400); RBC Distribution Width 13.1 % (11.5-14.5); Red Blood Cell (RBC) Count 3.84 mill/uL (4.70-6.10); White Blood Cell (WBC) Count 2.2 thou/uL (4.8-10.8)
[2017-10-05 06:09] LABS: Anion Gap 11 mmol/L (10-20); BUN (Urea Nitrogen) 12 mg/dL (8.4-25.7); Calc. Creatinine Clearance 113 mL/min (70-130); Calcium 8.3 mg/dL (7.8-10.44); Carbon Dioxide 27 mmol/L (22-29); Chloride 98 mmol/L (98-107); Estimated GFR-MDRD Greater than 90; Glucose 91 mg/dL (70-105); Sodium 132 mmol/L (136-145)
[2017-10-05] MEDS: Famotidine 20 MG TAB PO SCH ×2 (08:31→19:46)
[2017-10-05] MEDS: Enoxaparin Sodium 80 MG/0.8 ML SYRINGE SC SCH ×2 (08:31→19:46)
[2017-10-05] MEDS: Dronedarone HCl 400 MG TAB PO SCH ×2 (08:31→16:33)
[2017-10-05] MEDS: Polyethylene Glycol 3350 17 GM Packet PO SCH ×2 (08:31→20:36)
[2017-10-05] MEDS: Acetaminophen 325 MG TAB PO PRN ×2 (08:31→15:46)
[2017-10-05] MEDS: Metoprolol Tartrate 25 MG TAB PO SCH ×2 (08:36→19:48)
[2017-10-05] MEDS: Morphine ER 30 MG TAB PO SCH ×2 (10:26→19:49)
--- NOTE | 2017-10-05 10:36 | PDOC.PN ---
- Subjective Encounter Start Date: 10/05/17 Encounter Start Time: 10:34 Mr. Mcallister was seen today in follow-up of AFIB with RVR. Hehas convertted to sinus, after Cardioversion. He does not have any complaints this morning. He denies chest pain or shortness of breath. He denies nausea or vomiting. - Objective Resuscitation Status: Resuscitation Status FULL:Full Resuscitation MAR Reviewed: Yes Vital Signs & Weight: Vital Signs (12 hours) Temp Pulse Resp BP Pulse Ox 10/05/17 08:40 97.7 F 89 19 115/69 98 10/05/17 03:36 97.8 F 96 14 111/71 94 L 10/05/17 00:51 102 H 104/64 Weight Admit Weight 153 lb 8 oz Weight 146 lb 1.6 oz I&O: 10/04/17 10/05/17 10/06/17 06:59 06:59 06:59 Intake Total 800 1400 Output Total 1175 1100 Balance -375 300 Result Diagrams: 10/05/17 05:26 10/05/17 05:26 Phys Exam - Physical Examination HEENT: PERRLA Respiratory: no wheezing, no rales, no rhonchi, clear to auscultation bilateral Cardiovascular: RRR, no significant murmur, no rub Gastrointestinal: soft, non-tender, no distention, positive bowel sounds Musculoskeletal: no edema Dx/Plan (1) Atrial fibrillation with RVR Code(s): I48.91 - UNSPECIFIED ATRIAL FIBRILLATION Status: Acute (2) Constipation due to opioid therapy Code(s): K59.03 - DRUG INDUCED CONSTIPATION; T40.2X5A - ADVERSE EFFECT OF OTHER OPIOIDS, INITIAL ENCOUNTER Status: Acute (3) BPH (benign prostatic hyperplasia) Code(s): N40.0 - BENIGN PROSTATIC HYPERPLASIA WITHOUT LOWER URINRY TRACT SYMP Status: Chronic Qualifiers: Lower urinary tract symptom presence: symptoms absent Qualified Code(s): N40.0 - Benign prostatic hyperplasia without lower urinary tract symptoms (4) Mitral regurgitation Status: Chronic Qualifiers: Cardiac valve disease etiology: etiology unspecified Qualified Code(s): I34.0 - Nonrheumatic mitral (valve) insufficiency (5) Nausea & vomiting Code(s): R11.2 - NAUSEA WITH VOMITING, UNSPECIFIED Status: Resolved Qualifiers: Vomiting type: unspecified Vomiting Intractability: non-intractable Qualified Code(s): R11.2 - Nausea with vomiting, unspecified - Plan * AFIB with RVR- he is now in sinus, and is clinically stable- he is on Multaq, and Metoprolol, and has been started on coumadin * HTN- blood pressure has been on the lower side- Lisinopril dose has been lowered . * MVP with severe MR- compensated * BPH- stable * Disposition as per Cardiology
[2017-10-05] MEDS: Senokot S 8.6-50 MG TAB PO SCH ×3 (11:31→19:49)
[2017-10-05] MEDS: Warfarin Sodium 5 MG TAB PO SCH (16:33)
[2017-10-05] MEDS ORDERED: Warfarin Sodium 5 MG TAB PO SCH (18:00)
[2017-10-05] MEDS: Finasteride 5 MG TAB PO SCH (19:47)
[2017-10-05] MEDS: Mirtazapine 30 MG TAB PO SCH (19:48)
[2017-10-05] MEDS: Tamsulosin HCl 0.4 MG CAP PO SCH (19:48)
[2017-10-05] MEDS: Lisinopril 10 MG TAB PO SCH (19:48)
--- NOTE | 2017-10-05 20:01 | PDOC.EVN ---
Event Note - Event Note Event Note: Pt takes miralax bid at home - RN requesting this as last BM 2 days ago. Changed order and added prn lactulose. No other needs.
[2017-10-05] MEDS ORDERED: Lisinopril 10 MG TAB PO SCH (21:00)
[2017-10-06] MEDS: Morphine IR Tab 15 MG TAB PO PRN ×4 (00:16→19:47)
[2017-10-06 05:47] LABS: INR-International Normal Ratio 1.5; Prothrombin Time 18.3 SEC (12.0-14.7)
[2017-10-06 05:52] LABS: Anion Gap 13 mmol/L (10-20); BUN (Urea Nitrogen) 10 mg/dL (8.4-25.7); Calc. Creatinine Clearance 98 mL/min (70-130); Carbon Dioxide 26 mmol/L (22-29); Chloride 97 mmol/L (98-107); Estimated GFR-MDRD Greater than 90; Glucose 95 mg/dL (70-105); Sodium 131 mmol/L (136-145)
[2017-10-06 06:28] LABS: Band 8 % (5-11); Eosinophils 1 % (0-10); Hemoglobin 11.2 g/dL (14.0-18.0); Lymphocytes 35 % (21-51); MDiff Complete? YES; Mean Corpuscular HGB CONC 32.4 g/dL (32.0-36.0); Mean Corpuscular Hemoglobin 27.6 pg (27.0-31.0); Mean Corpuscular Volume 85.2 fL (78.0-98.0); Mean Platelet Volume 6.9 fL (7.4-10.4); Monocytes 2 % (0-10); Neutrophil 54 % (42-75); PLT Morphology Comment Appears Adequate; Platelet Count 280 thou/uL (130-400); RBC Distribution Width 13.1 % (11.5-14.5); Red Blood Cell (RBC) Count 4.05 mill/uL (4.70-6.10); White Blood Cell (WBC) Count 2.5 thou/uL (4.8-10.8)
[2017-10-06] MEDS ORDERED: Sodium Chloride 0.9% 10 ML ONE (08:41)
[2017-10-06] MEDS: Senokot S 8.6-50 MG TAB PO SCH ×3 (09:23→19:58)
[2017-10-06] MEDS: Famotidine 20 MG TAB PO SCH ×2 (09:24→19:52)
[2017-10-06] MEDS: Morphine ER 30 MG TAB PO SCH ×2 (09:24→21:05)
[2017-10-06] MEDS: Metoprolol Tartrate 25 MG TAB PO SCH ×2 (09:24→19:56)
[2017-10-06] MEDS: Enoxaparin Sodium 80 MG/0.8 ML SYRINGE SC SCH ×2 (09:26→19:50)
[2017-10-06] MEDS: Dronedarone HCl 400 MG TAB PO SCH ×2 (09:26→17:06)
[2017-10-06] MEDS: Polyethylene Glycol 3350 17 GM Packet PO SCH ×2 (09:26→19:58)
--- NOTE | 2017-10-06 10:29 | PDOC.PN ---
- Subjective Encounter Start Date: 10/06/17 Encounter Start Time: 10:28 Mr. Mcallister was seen today in follow-up. He does not have any new complaints. He denies chest pain or dyspnea. - Objective Resuscitation Status: Resuscitation Status FULL:Full Resuscitation MAR Reviewed: Yes Vital Signs & Weight: Vital Signs (12 hours) Temp Pulse Resp BP Pulse Ox 10/06/17 08:00 97.9 F 100 16 121/66 96 10/06/17 04:00 98.3 F 96 18 125/73 94 L Weight Admit Weight 153 lb 8 oz Weight 151 lb 8 oz I&O: 10/05/17 10/06/17 10/07/17 06:59 06:59 06:59 Intake Total 1400 1547 Output Total 1100 1350 Balance 300 197 Result Diagrams: 10/06/17 05:18 10/06/17 05:18 Phys Exam - Physical Examination HEENT: PERRLA Respiratory: no wheezing, no rales, no rhonchi, clear to auscultation bilateral Cardiovascular: RRR, no rub 3/6 systolic murmur Gastrointestinal: soft, non-tender, no distention, positive bowel sounds Musculoskeletal: no edema Dx/Plan (1) Atrial fibrillation with RVR Code(s): I48.91 - UNSPECIFIED ATRIAL FIBRILLATION Status: Acute (2) Constipation due to opioid therapy Code(s): K59.03 - DRUG INDUCED CONSTIPATION; T40.2X5A - ADVERSE EFFECT OF OTHER OPIOIDS, INITIAL ENCOUNTER Status: Acute (3) BPH (benign prostatic hyperplasia) Code(s): N40.0 - BENIGN PROSTATIC HYPERPLASIA WITHOUT LOWER URINRY TRACT SYMP Status: Chronic Qualifiers: Lower urinary tract symptom presence: symptoms absent Qualified Code(s): N40.0 - Benign prostatic hyperplasia without lower urinary tract symptoms (4) Mitral regurgitation Status: Chronic Qualifiers: Cardiac valve disease etiology: etiology unspecified Qualified Code(s): I34.0 - Nonrheumatic mitral (valve) insufficiency (5) Nausea & vomiting Code(s): R11.2 - NAUSEA WITH VOMITING, UNSPECIFIED Status: Resolved Qualifiers: Vomiting type: unspecified Vomiting Intractability: non-intractable Qualified Code(s): R11.2 - Nausea with vomiting, unspecified - Plan * Atrial Fibrillation- he is now in sinus- he is on Multaq, and Metoprolol * CVA prevention is with coumadin- and his INR is now 1.5 * Lung cancer- stable- he is actively being treated * BPH- stable.
--- NOTE | 2017-10-06 14:22 | PQF ---
CLINICAL DOCUMENTATION IMPROVEMENT CLARIFICATION FORM: ICD-10 Updated PLEASE DO AN ADDENDUM TO THE PROGRESS NOTE WITH ANY DOCUMENTATION UPDATES OR ADDITIONS AND CARRY THROUGH TO DC SUMMARY. THANK YOU. DATE: 10/06, 10/07 ATTN: DR. SARITHA DILLON/ DR. Michael VÁZQUEZ Please exercise your independent, professional judgment in responding to the clarification form. Clinical indicators are provided on the bottom of this form for your review. Please check appropriate box(s): [ x ] Hyponatremia [ ] Hypernatremia [ ] Other diagnosis [ x] Unable to determine For continuity of documentation, please document condition throughout progress notes and discharge summary. Thank You. CLINICAL INDICATORS - SIGNS / SYMPTOMS/ LABS are present in the medical record: SODIUM: 127 (10/03) 135 (10/04) 132 (10/05) 131 (10/06) RISK FACTORS: NAUSEA & VOMITING S/P CHEMO DEHYDRATION TREATMENT: SERIAL BASMET LABS IVF (NS 10/03 - ) THANK YOU! Moni (This form is maintained as a part of the permanent medical record) 2014 [employer], [email or web address]. All Rights Reserved Moni Layton RN, BSN [email or web address] Office: [phone] [facility]
[2017-10-06] MEDS ORDERED: Warfarin Sodium 5 MG TAB PO SCH (15:45)
[2017-10-06] MEDS: Warfarin Sodium 5 MG TAB PO SCH (17:11)
[2017-10-06] MEDS: Finasteride 5 MG TAB PO SCH (19:52)
[2017-10-06] MEDS: Lisinopril 10 MG TAB PO SCH (19:56)
[2017-10-06] MEDS: Mirtazapine 30 MG TAB PO SCH (19:58)
[2017-10-06] MEDS: Tamsulosin HCl 0.4 MG CAP PO SCH (19:58)
[2017-10-07] MEDS: Morphine IR Tab 15 MG TAB PO PRN ×3 (02:16→17:17)
[2017-10-07 05:35] LABS: #Lymphocytes 0.7 thou/uL (1.20-3.40); #Monocytes 0.1 thou/uL (0.11-0.59); #Neutrophils 1.2 thou/uL (1.40-6.50); %Eosinophils 2.2 % (0.0-10.0); %Lymphocytes 32.4 % (21.0-51.0); %Neutrophils 59.4 % (42.0-75.0); Hemoglobin 10.8 g/dL (14.0-18.0); Mean Corpuscular HGB CONC 33.3 g/dL (32.0-36.0); Mean Corpuscular Hemoglobin 28.1 pg (27.0-31.0); Mean Corpuscular Volume 84.5 fL (78.0-98.0); Mean Platelet Volume 5.8 fL (7.4-10.4); Platelet Count 225 thou/uL (130-400); RBC Distribution Width 12.9 % (11.5-14.5); Red Blood Cell (RBC) Count 3.86 mill/uL (4.70-6.10); White Blood Cell (WBC) Count 2.1 thou/uL (4.8-10.8)
[2017-10-07 05:41] LABS: INR-International Normal Ratio 1.7; Prothrombin Time 20.1 SEC (12.0-14.7)
[2017-10-07 05:48] LABS: Anion Gap 12 mmol/L (10-20); BUN (Urea Nitrogen) 10 mg/dL (8.4-25.7); Calc. Creatinine Clearance 102 mL/min (70-130); Calcium 8.7 mg/dL (7.8-10.44); Carbon Dioxide 26 mmol/L (22-29); Chloride 99 mmol/L (98-107); Estimated GFR-MDRD Greater than 90; Glucose 96 mg/dL (70-105); Potassium 4.4 mmol/L (3.5-5.1); Sodium 133 mmol/L (136-145)
[2017-10-07] MEDS: Dronedarone HCl 400 MG TAB PO SCH ×2 (08:17→17:00)
[2017-10-07] MEDS: Enoxaparin Sodium 80 MG/0.8 ML SYRINGE SC SCH ×2 (08:18→20:50)
[2017-10-07] MEDS: Metoprolol Tartrate 25 MG TAB PO SCH ×2 (08:20→20:51)
[2017-10-07] MEDS: Famotidine 20 MG TAB PO SCH (08:20)
[2017-10-07] MEDS: Morphine ER 30 MG TAB PO SCH ×2 (08:21→20:50)
[2017-10-07] MEDS: Polyethylene Glycol 3350 17 GM Packet PO SCH ×2 (08:23→20:49)
[2017-10-07] MEDS: Senokot S 8.6-50 MG TAB PO SCH ×3 (08:24→20:50)
[2017-10-07] MEDS ORDERED: Warfarin Sodium 5 MG TAB PO SCH (08:30)
--- NOTE | 2017-10-07 14:25 | PDOC.PN ---
- Subjective Encounter Start Date: 10/07/17 Encounter Start Time: 09:30 Subjective: pt up in bed no complains - Objective Resuscitation Status: Resuscitation Status FULL:Full Resuscitation Vital Signs & Weight: Vital Signs (12 hours) Temp Pulse Resp BP Pulse Ox 10/07/17 11:12 98.7 F 72 16 127/80 95 10/07/17 08:14 98.0 F 102 H 16 117/75 98 10/07/17 03:00 97.0 F L 98 16 122/76 94 L Weight Admit Weight 153 lb 8 oz Weight 147 lb 8 oz I&O: 10/06/17 10/07/17 10/08/17 06:59 06:59 06:59 Intake Total 1547 1780 Output Total 1350 1300 Balance 197 480 Result Diagrams: 10/07/17 05:27 10/07/17 05:27 Phys Exam - Physical Examination HEENT: PERRLA, moist MMs, sclera anicteric, TM's clear, oral pharynx no lesions , 2+ tonsils Neck: no nodes, no JVD, supple, full ROM Respiratory: no wheezing, no rales, no rhonchi, wheezing present, clear to auscultation bilateral holosystolic murmur heard all Gastrointestinal: soft, non-tender, no distention, positive bowel sounds Musculoskeletal: no edema, pulses present, edema present Dx/Plan (1) Atrial fibrillation with RVR Code(s): I48.91 - UNSPECIFIED ATRIAL FIBRILLATION Status: Acute (2) Lung cancer Code(s): C34.90 - MALIGNANT NEOPLASM OF UNSP PART OF UNSP BRONCHUS OR LUNG Status: Chronic Qualifiers: Laterality: right Lung location: lower lobe of lung Qualified Code(s): C34.31 - Malignant neoplasm of lower lobe, right bronchus or lung Comment: non small cell lung cancer treated at [facility] (3) Mitral regurgitation Status: Chronic Qualifiers: Cardiac valve disease etiology: etiology unspecified Qualified Code(s): I34.0 - Nonrheumatic mitral (valve) insufficiency (4) BPH (benign prostatic hyperplasia) Code(s): N40.0 - BENIGN PROSTATIC HYPERPLASIA WITHOUT LOWER URINRY TRACT SYMP Status: Chronic Qualifiers: Lower urinary tract symptom presence: symptoms absent Qualified Code(s): N40.0 - Benign prostatic hyperplasia without lower urinary tract symptoms - Plan pt subtheraputic was given an extra dose of coumadin. will walk pt -: to see if his heart rate worsens. Family requested his echo report to be -: faxed to his surgeon in [place]. possible discharge in am * . Review of Systems - Review of Systems ENT: negative: Ear Pain, Ear Discharge, Nose Pain, Nose Discharge, Nose Congestion, Mouth Pain, Mouth Swelling, Throat Pain, Throat Swelling, Other Respiratory: negative: Cough, Dry, Shortness of Breath, Hemoptysis, SOB with Excertion, Pleuritic Pain, Sputum, Wheezing Cardiovascular: negative: chest pain, palpitations, orthopnea, paroxysmal nocturnal dyspnea, edema, light headedness, other - Medications/Allergies Allergies/Adverse Reactions: Allergies Allergy/AdvReac Type Severity Reaction Status Date / Time No Known Allergies Allergy Verified 09/06/17 02:08 Medications: Current Medications Acetaminophen (Tylenol) 650 mg PO Q4H PRN PRN Reason: Headache/Fever or Pain Last Admin: 10/05/17 15:46 Dose: 650 mg Dronedarone (Multaq) 400 mg PO BID-[facility] Last Admin: 10/07/17 08:17 Dose: 400 mg Enoxaparin Sodium (Lovenox) 70 mg SC 0900,2100 [facility] Last Admin: 10/07/17 08:18 Dose: 70 mg Finasteride (Proscar) 5 mg PO QPM [facility] Last Admin: 10/06/17 19:52 Dose: 5 mg Lactulose (Lactulose) 20 gm PO DAILYPRN PRN PRN Reason: Constipation Lisinopril (Zestril) 5 mg PO QPM [facility] Last Admin: 10/06/17 19:56 Dose: Not Given Magnesium Hydroxide (Milk Of Magnesium) 30 ml PO DAILYPRN PRN PRN Reason: Constipation Metoprolol Tartrate (Lopressor) 25 mg PO BID [facility] Last Admin: 10/07/17 08:20 Dose: 25 mg Mirtazapine (Remeron) 30 mg PO HS [facility] Last Admin: 10/06/17 19:58 Dose: 30 mg Morphine Sulfate (Morphine Ir Tab) 15 mg PO Q6H PRN PRN Reason: Pain Last Admin: 10/07/17 11:15 Dose: 15 mg Morphine Sulfate (Ms Contin) 60 mg PO Q12HR [facility] Last Admin: 07/03/18 08:21 Dose: 60 mg Ondansetron HCl (Zofran) 4 mg IVP Q6H PRN PRN Reason: Nausea/Vomiting Ondansetron HCl (Zofran Odt) 8 mg PO Q8H PRN PRN Reason: Nausea/Vomiting Last Admin: 10/06/17 19:46 Dose: 8 mg Pantoprazole Sodium (Protonix) 40 mg PO DAILY [facility] Last Admin: 10/07/17 08:23 Dose: 40 mg Polyethylene Glycol (Miralax) 17 gm PO BID [facility] Last Admin: 10/07/17 08:23 Dose: 17 gm Senna/Docusate Sodium (Senokot S) 2 tab PO 0900,1200 [facility] Last Admin: 10/07/17 11:15 Dose: 2 tab Senna/Docusate Sodium (Senokot S) 1 tab PO 2100 [facility] Last Admin: 10/06/17 19:58 Dose: Not Given Tamsulosin HCl (Flomax) 0.4 mg PO QPM [facility] Last Admin: 10/06/17 19:58 Dose: 0.4 mg Warfarin Sodium (Coumadin) 5 mg PO 1700 [facility] Last Admin: 10/06/17 17:11 Dose: 5 mg
[2017-10-07] MEDS: Warfarin Sodium 5 MG TAB PO SCH (17:03)
[2017-10-07] MEDS: Finasteride 5 MG TAB PO SCH (20:51)
[2017-10-07] MEDS: Mirtazapine 30 MG TAB PO SCH (20:51)
[2017-10-07] MEDS: Tamsulosin HCl 0.4 MG CAP PO SCH (20:51)
[2017-10-07] MEDS: Lisinopril 10 MG TAB PO SCH (20:52)
[2017-10-08] MEDS: Morphine IR Tab 15 MG TAB PO PRN ×2 (00:16→06:22)
[2017-10-08 04:43] LABS: INR-International Normal Ratio 1.8; Prothrombin Time 20.9 SEC (12.0-14.7)
[2017-10-08 05:12] LABS: Anion Gap 11 mmol/L (10-20); BUN (Urea Nitrogen) 11 mg/dL (8.4-25.7); Calc. Creatinine Clearance 99 mL/min (70-130); Calcium 8.4 mg/dL (7.8-10.44); Carbon Dioxide 27 mmol/L (22-29); Chloride 97 mmol/L (98-107); Estimated GFR-MDRD Greater than 90; Glucose 97 mg/dL (70-105); Hemoglobin 10.8 g/dL (14.0-18.0); Lymphocytes 40 % (21-51); MDiff Complete? YES; Mean Corpuscular HGB CONC 33.7 g/dL (32.0-36.0); Mean Corpuscular Hemoglobin 28.4 pg (27.0-31.0); Mean Corpuscular Volume 84.4 fL (78.0-98.0); Mean Platelet Volume 6.9 fL (7.4-10.4); Monocytes 4 % (0-10); Neutrophil 56 % (42-75); PLT Morphology Comment Appears Adequate; Platelet Count 235 thou/uL (130-400); Potassium 3.9 mmol/L (3.5-5.1); RBC Distribution Width 12.9 % (11.5-14.5); Red Blood Cell (RBC) Count 3.82 mill/uL (4.70-6.10); Sodium 131 mmol/L (136-145); White Blood Cell (WBC) Count 2.4 thou/uL (4.8-10.8)
[2017-10-08 07:39] VITALS: BP 122/73; TEMP 98.3
[2017-10-08] MEDS: Enoxaparin Sodium 80 MG/0.8 ML SYRINGE SC SCH (08:45)
[2017-10-08] MEDS: Morphine ER 30 MG TAB PO SCH (08:46)
[2017-10-08] MEDS: Dronedarone HCl 400 MG TAB PO SCH (08:47)
[2017-10-08] MEDS: Senokot S 8.6-50 MG TAB PO SCH (08:47)
[2017-10-08] MEDS: Polyethylene Glycol 3350 17 GM Packet PO SCH (08:47)
[2017-10-08] MEDS: Metoprolol Tartrate 25 MG TAB PO SCH (08:47)
--- NOTE | 2017-10-09 00:28 | DIS ---
DATE OF ADMISSION: 10/03/2017 DATE OF DISCHARGE: 10/08/2017 DISCHARGE DIAGNOSES: As of the followin. Atrial fibrillation with a rapid ventricular response. 2. Lung cancer. 4. Mitral regurgitation. 5. Benign prostatic hyperplasia. HOSPITAL COURSE: Patient is a very pleasant 62-year-old male, who is undergoing chemotherapy for non -small cell carcinoma, who initially presented with nausea and vomiting. The patient, at this time, was found to be in atrial fibrillation with a rapid ventricular response. He was cardioverted in the ER due to some confusion and hemodynamic instability. Patient then was admitted to telemetry for fu rther investigation. Patient was seen by Cardiology. He underwent an echocardiogram, which indicate d an EF of 50%-55% with severe holosystolic prolapse of the posterior leaflet of the mitral valve, se massiel mitral regurgitation, and mild tricuspid regurgitation. Patient has been aware of this severe m itral regurgitation and is following with a charger in [place] for possible robotic surgery. Th e patient was put on Lovenox initially and bridged with Coumadin. His INR upon discharge was 1.8. T he patient was advised to take 10 mg of Coumadin tonight and follow up with INR with the Coumadin Cli maria elena in the morning. Patient was asked to call for an appointment for this. PHYSICAL EXAMINATION: VITAL SIGNS: Temperature of 98.5, 91, 18, 96% room air, 110/70. GENERAL: He is awake, alert, oriented x3, does not appear in distress. CARDIOVASCULAR: S1, S2 present. No rubs or gallops. He has a holosystolic murmur and irregularly i rregular rhythm. ABDOMEN: Soft, nontender. Bowel sounds are present x2. EXTREMITIES: No edema. DISCHARGE MEDICATIONS: The patient's home medications are as the following: Flomax 0.4 mg q.p.m., P rilosec 20 mg daily, senna plus 5 mg daily, morphine 50 mg q.6 hours p.r.n., morphine sulfate extende d release 60 mg b.i.d., warfarin 5 mg daily, however, today he is going to take 10 mg, Remeron 15 mg daily for appetite stimulation, metoprolol 25 mg p.o. b.i.d., lisinopril 5 mg q.p.m., Proscar 5 mg q. p.m., and Multaq 400 mg b.i.d. Again, the patient will follow up with his PCP, who is also in [facility] and also the charger, who is in [place].
== END 2017-10-08 11:16 | disposition home or self-care (01) | DRG 309 ==
LOC: ERS 07:53 → ERHOLD 10:40 → 2NO 13:32
PROVIDERS: ADMIT Internal Medicine; ATTEND Internal Medicine
DX: I48.91 Unspecified atrial fibrillation (principal); C34.90 Malignant neoplasm of unspecified part of unspecified bronchus or lung; E87.1 Hypo-osmolality and hyponatremia; Z92.21 Personal history of antineoplastic chemotherapy; N40.0 Benign prostatic hyperplasia without lower urinary tract symptoms; Z79.899 Other long term (current) drug therapy; R11.2 Nausea with vomiting, unspecified; E86.0 Dehydration; Z92.3 Personal history of irradiation; I34.0 Nonrheumatic mitral (valve) insufficiency; I10 Essential (primary) hypertension; I95.9 Hypotension, unspecified; I34.1 Nonrheumatic mitral (valve) prolapse; T45.1X5A Adverse effect of antineoplastic and immunosuppressive drugs, initial encounter; K59.03 Drug induced constipation; T40.2X5A Adverse effect of other opioids, initial encounter
CPT/HCPCS: 36415; 71045; 80048; 80053; 82553; 83605; 83880; 84439; 84443; 84484; 85025; 85610; 85730; 92960; 93005; 93306; A4216; J1650; J8540

== ENCOUNTER 2017-12-03 18:22 | Emergency (ER) | payer OTHER ==
[2017-12-03 18:55] LABS: #Eosinphils 0.2 thou/uL (0.0-0.7); #Monocytes 2.1 thou/uL (0.11-0.59); %Basophils 0.1 % (0.0-1.0); %Eosinophils 1.3 % (0.0-10.0); %Lymphocytes 6.3 % (21.0-51.0); %Monocytes 13.5 % (0.0-10.0); %Neutrophils 78.8 % (42.0-75.0); Hemoglobin 12.1 g/dL (14.0-18.0); Mean Corpuscular HGB CONC 32.6 g/dL (32.0-36.0); Mean Corpuscular Hemoglobin 26.3 pg (27.0-31.0); Mean Corpuscular Volume 80.6 fL (78.0-98.0); Mean Platelet Volume 6.6 fL (7.4-10.4); Platelet Count 441 thou/uL (130-400); RBC Distribution Width 15.8 % (11.5-14.5); White Blood Cell (WBC) Count 15.3 thou/uL (4.8-10.8)
[2017-12-03 19:01] LABS: INR-International Normal Ratio 1.3; Prothrombin Time 16.7 SEC (12.0-14.7)
[2017-12-03 19:02] LABS: PTT 41.6 SEC (22.9-36.1)
[2017-12-03 19:13] LABS: ALT (SGPT) 29 U/L (8-55); AST (SGOT) 23 U/L (5-34); Albumin 3.8 g/dL (3.5-5.0); Alkaline Phosphatase 98 U/L (40-150); Anion Gap 15 mmol/L (10-20); BUN (Urea Nitrogen) 16 mg/dL (8.4-25.7); Bilirubin, Total 0.8 mg/dL (0.2-1.2); CK (CPK) 36 U/L (30-200); Calc. Creatinine Clearance 0 mL/min (70-130); Calcium 9.5 mg/dL (7.8-10.44); Carbon Dioxide 27 mmol/L (22-29); Chloride 92 mmol/L (98-107); Estimated GFR-MDRD Greater than 90; Globulin 4.5 g/dL (2.4-3.5); Glucose 124 mg/dL (70-105); Potassium 4.9 mmol/L (3.5-5.1); Protein, Total 8.3 g/dL (6.0-8.3); Sodium 129 mmol/L (136-145)
[2017-12-03 19:18] LABS: CKMB 0.7 ng/mL (0-6.6); Troponin I 0.135 ng/mL (< 0.028)
--- NOTE | 2017-12-03 19:41 | RAD ---
CHEST ONE VIEW: 12/03/17 HISTORY: Chest pain. COMPARISON: 10/03/17. FINDINGS: Significant rightward shift of the mediastinum. Density at the right base has progressed with the priti earance of significant atelectasis. Patchy infiltrate throughout the left upper lobe has increased. N o evidence of pneumothorax. Aortic valve prosthesis partially visualized. IMPRESSION: Left upper lobe infiltrate. Clinical correlation regarding other signs and symptoms of left upper lob e pneumonitis is required. Progressive atelectasis right lower lobe with rightward shift of the mediastinum. POS: CRISTINEH
--- NOTE | 2017-12-03 20:25 | CT ---
CT ARTERIOGRAM CHEST WITH IV CONTRAST AND 3D MIP IMAGING 12/03/17 HISTORY: Dyspnea. Mitral valve repair. FINDINGS: There is good contrast opacification of the pulmonary arteries and thoracic aorta. Normal branching o f the great vessels from the aortic arch. Mitral valve ring. Ground glass wedge shaped infiltrates are present within the left upper and lower lobes. More focal c entral consolidation of the right lower lobe is present with air bronchograms. There is an area of co nsolidation without air bronchograms centrally within the right lower lobe. Vessels are not displaced . Parenchymal scarring extends to the posterior and lateral pleural surface. IMPRESSION: No CT evidence of pulmonary embolus. Multifocal acute and chronic infiltrate type appearance throughout each lung as detailed above, inclu ding consolidation and atelectasis at the right lower lobe. No obstructing bronchial lesions evident. Please consider pulmonary medicine evaluation. POS: ROBIN
[2017-12-03 21:10] LABS: Troponin I 0.121 ng/mL (< 0.028)
--- NOTE | 2017-12-04 13:55 | EKG ---
Test Reason : Blood Pressure : / mmHG Vent. Rate : 116 BPM Atrial Rate : 116 BPM P-R Int : 210 ms QRS Dur : 082 ms QT Int : 298 ms P-R-T Axes : 037 066 083 degrees QTc Int : 414 ms Sinus tachycardia with 1st degree A-V block Possible Left atrial enlargement Left ventricular hypertrophy Nonspecific T wave abnormality Abnormal ECG Reconfirmed by MEENU ALDRICH DO ([id number]), editor news LINDA JACOBO ([id number]) on 12/04/2017 1:54:59 PM Referred By: Confirmed By:MEENU ALDRICH DO
== END 2017-12-03 22:45 | disposition home or self-care (01) ==
LOC: ERS 18:22
DX: J18.9 Pneumonia, unspecified organism (principal); R07.89 Other chest pain; I10 Essential (primary) hypertension; Z79.82 Long term (current) use of aspirin; Z79.899 Other long term (current) drug therapy; Z85.118 Personal history of other malignant neoplasm of bronchus and lung
CPT/HCPCS: 36415; 71045; 71275; 80053; 82550; 82553; 83880; 84484; 85025; 85610; 85730; 93005; 94760

== ENCOUNTER 2017-12-07 11:35 | Emergency (ER) | payer OTHER ==
[2017-12-07 12:46] LABS: ALT (SGPT) 25 U/L (8-55); AST (SGOT) 16 U/L (5-34); Albumin 3.1 g/dL (3.5-5.0); Alkaline Phosphatase 75 U/L (40-150); Anion Gap 16 mmol/L (10-20); BUN (Urea Nitrogen) 20 mg/dL (8.4-25.7); Bilirubin, Total 0.6 mg/dL (0.2-1.2); CK (CPK) 37 U/L (30-200); Calc. Creatinine Clearance 0 mL/min (70-130); Calcium 8.8 mg/dL (7.8-10.44); Carbon Dioxide 23 mmol/L (22-29); Chloride 95 mmol/L (98-107); Estimated GFR-MDRD 73; Globulin 3.7 g/dL (2.4-3.5); Glucose 121 mg/dL (70-105); Potassium 4.4 mmol/L (3.5-5.1); Protein, Total 6.8 g/dL (6.0-8.3); Sodium 130 mmol/L (136-145)
[2017-12-07 12:50] LABS: CKMB 0.7 ng/mL (0-6.6); Troponin I 0.052 ng/mL (< 0.028)
[2017-12-07 12:53] LABS: Band 5 % (5-11); Eosinophils 1 % (0-10); Hemoglobin 10.3 g/dL (14.0-18.0); Lymphocytes 3 % (21-51); MDiff Complete? YES; Mean Corpuscular HGB CONC 33.2 g/dL (32.0-36.0); Mean Corpuscular Hemoglobin 26.9 pg (27.0-31.0); Mean Corpuscular Volume 81.1 fL (78.0-98.0); Mean Platelet Volume 6.2 fL (7.4-10.4); Monocytes 9 % (0-10); Neutrophil 81 % (42-75); Platelet Count 459 thou/uL (130-400); RBC Distribution Width 15.7 % (11.5-14.5); Red Blood Cell (RBC) Count 3.83 mill/uL (4.70-6.10); White Blood Cell (WBC) Count 13.2 thou/uL (4.8-10.8)
--- NOTE | 2017-12-07 14:09 | CT ---
CT OF THE BRAIN WITHOUT CONTRAST: Date: 12/07/17 INDICATION: History of dizziness, with recent mitral valvular repair on 11/25/16. FINDINGS: No acute infarct, hemorrhage, or hydrocephalus is present. There is mild chronic small vessel white m atter ischemic change. The septum pellucidum and third ventricle are midline. The skull and extracranial soft tissues appear within normal limits. IMPRESSION: No acute intracranial abnormality demonstrated. POS: ROBIN
--- NOTE | 2017-12-07 14:11 | RAD ---
PORTABLE CHEST: Date: 12/07/17 COMPARISON: 12/03/17 exam. FINDINGS: Heart size is within normal limits. The left parahilar infiltrative changes and right lower lobe pleu ral and parenchymal lung changes all appear stable as compared to the prior exam. IMPRESSION: Stable exam. POS: ROBIN
[2017-12-07 14:29] LABS: Bilirubin Negative (Negative); Blood, Urine Negative (Negative); Clarity CLEAR (Clear); Glucose, Urine (Dipstick) Negative (Negative); Leukocyte Negative (Negative); Nitrite Negative (Negative); Protein, Urine (Dipstick) Negative (Neg-Trace); Specific Gravity, Urine 1.009 (1.002-1.036); Urobilinogen 0.2 mg/dL (0.2-1.0); pH, Urine 7.5 (5.0-9.0)
== END 2017-12-07 15:11 | disposition home or self-care (01) ==
LOC: ERS 11:35
DX: I95.1 Orthostatic hypotension (principal); I10 Essential (primary) hypertension; Z79.899 Other long term (current) drug therapy; Z79.82 Long term (current) use of aspirin
CPT/HCPCS: 36415; 70450; 71045; 80053; 81003; 82553; 84484; 85025; 87086; 93005; 96360; 96361

== ENCOUNTER 2018-06-15 14:45 | Emergency (ER) | payer OTHER, SELFPAY | END 2018-06-15 15:25 | disposition home or self-care (01) | LOC: ERS 14:45 | DX: B02.9 Zoster without complications (principal); I10 Essential (primary) hypertension | CPT/HCPCS: 99282 ==

== ENCOUNTER 2019-01-05 09:00 | Inpatient (IN) | payer BC, SELFPAY ==
[2019-01-05] MEDS ORDERED: Morphine 4 MG/ML VIAL ONE ×2 (10:12→12:11)
[2019-01-05] MEDS ORDERED: Ondansetron PF 4 MG/2 ML Vial ONE (10:13)
[2019-01-05 10:43] LABS: #Eosinphils 0.1 thou/uL (0.0-0.7); #Lymphocytes 0.9 thou/uL (1.20-3.40); #Monocytes 1.5 thou/uL (0.11-0.59); #Neutrophils 9.9 thou/uL (1.40-6.50); %Basophils 0.1 % (0.0-1.0); %Eosinophils 0.9 % (0.0-10.0); %Lymphocytes 7.1 % (21.0-51.0); %Monocytes 12.4 % (0.0-10.0); %Neutrophils 79.6 % (42.0-75.0); Hemoglobin 13.6 g/dL (14.0-18.0); Mean Corpuscular HGB CONC 34.5 g/dL (32.0-36.0); Mean Corpuscular Hemoglobin 29.9 pg (27.0-31.0); Mean Corpuscular Volume 86.5 fL (78.0-98.0); Mean Platelet Volume 6.6 fL (7.4-10.4); Platelet Count 204 thou/uL (130-400); RBC Distribution Width 12.4 % (11.5-14.5); Red Blood Cell (RBC) Count 4.56 mill/uL (4.70-6.10); White Blood Cell (WBC) Count 12.4 thou/uL (4.8-10.8)
[2019-01-05 10:53] LABS: ALT (SGPT) 30 U/L (8-55); AST (SGOT) 17 U/L (5-34); Albumin 3.7 g/dL (3.4-4.8); Alkaline Phosphatase 120 U/L (40-110); Anion Gap 11 mmol/L (10-20); BUN (Urea Nitrogen) 16 mg/dL (8.4-25.7); Bilirubin, Total 1.1 mg/dL (0.2-1.2); Calc. Creatinine Clearance 0 mL/min (70-130); Calcium 8.5 mg/dL (7.8-10.44); Carbon Dioxide 29 mmol/L (23-31); Chloride 87 mmol/L (98-107); Estimated GFR-MDRD Greater than 90; Globulin 3.2 g/dL (2.4-3.5); Glucose 118 mg/dL (80-115); Potassium 4.7 mmol/L (3.5-5.1); Protein, Total 6.9 g/dL (5.8-8.1); Sodium 122 mmol/L (136-145)
--- NOTE | 2019-01-05 11:32 | CT ---
EXAM: CT Cervical Spine WO Con PROVIDED CLINICAL HISTORY: Neck pain, history of recent tumor resection COMPARISON: MRI cervical spine 12/22/2018 FINDINGS: Interval postoperative changes of surgical resection of the majority of the C5 and C6 vertebral toña s with placement of vertebral cage. Changes of anterior plate and screw fixation spanning C4-C7. Bilateral articular pillar screws and vertical extracting rods are noted at C3, C4 and terminating at the T1 level. Associated bone graft material posteriorly. Cervical alignment appears normal. Evaluation of the central canal and foramina is markedly limited d ue to beam hardening artifact from postsurgical change. There is absence of normal-appearing bone involving the articular pillar of C5 left of midline. There is absence of normal anterior aspects of transverse process involving C5 left of midline. No evidence for fracture. Mild prevertebral soft tissue swelling, nonspecific. IMPRESSION: 1. Interval postoperative changes as described above. Absence of normal-appearing bone involving the left C5 articular pillar and transverse process a be postsurgical. Given the provided clinical history of bone neoplasm, neoplastic involvement cannot be excluded. 2. No evidence for fracture or subluxation.
[2019-01-05 13:17] LABS: Bilirubin Negative (Negative); Blood, Urine Negative (Negative); Clarity Clear (Clear); Glucose, Urine (Dipstick) Normal (Negative); Leukocyte Negative Leu/uL (Negative); Nitrite Negative (Negative); Protein, Urine (Dipstick) 20 mg/dL (Neg-Trace); Urobilinogen Normal mg/dL (Less than 2)
--- NOTE | 2019-01-05 14:50 | HP ---
PRIMARY CARE PHYSICIAN: [facility] Call admission. REASON FOR ADMISSION: Hyponatremia. HISTORY OF PRESENT ILLNESS: A 63-year-old male, who has underlying history of hypertension, benign enlargement of prostate, who was recently admitted at [facility] for acute onset of neck pain and he had surgery done on December 26, 2018 and after surgery, he stayed in hospital for 5 days and he was discharged from the hospital on December 31, 2018. As per family member, the patient had tumor, which was removed from cervical spine. Pathology report is pending. When the patient was discharged, at that time, his routine blood test was completely unremarkable including sodium. Today, he presented to emergency room with complaint of neck pain and his routine blood test showed mild leukocytosis and hyponatremia with sodium 122. The patient denies any excessive water intake. He denies any chest pain, palpitation, shortness of breath, nausea, or vomiting. He does have neck pain, which is at surgical site, but his surgical site is clean and healthy without any drainage. He does not have any difficulty swallowing. When the patient was discharged, at that time he was instructed to get outpatient MRI. REVIEW OF SYSTEMS: CONSTITUTIONAL: Negative for weight loss or gain, ability to conduct usual activities. SKIN: Negative for rash, itching. EYES: Negative for double vision, pain. ENT/MOUTH: Negative for nose bleeding, neck stiffness, pain, tenderness. CARDIOVASCULAR: Negative for palpitations, dyspnea on exertion, orthopnea. RESPIRATORY: Negative for shortness of breath, wheezing, cough, hemoptysis, fever or night sweats. GASTROINTESTINAL: Negative for poor appetite, abdominal pain, heartburn, nausea, vomiting, constipation, or diarrhea. GENITOURINARY: Negative for urgency, frequency, dysuria, nocturia. MUSCULOSKELETAL: Negative for pain, swelling. NEUROLOGIC/PSYCHIATRIC: Negative for anxiety, depression. ALLERGY/IMMUNOLOGIC: Negative for skin rash, bleeding tendency. Please see my HPI for pertinent positives and negatives. All other review of systems reviewed and negative except as mentioned in HPI. PAST MEDICAL HISTORY: Hypertension, benign enlargement of prostate, and lung cancer. PAST SURGICAL HISTORY: Appendicectomy, recent cervical spine surgery with plate placement, mitral valve repair. PAST PSYCHIATRIC HISTORY: Anxiety and depression. SOCIAL HISTORY: The patient is . No history of tobacco, alcohol, or illicit drug abuse. ALLERGIES: NO KNOWN DRUG ALLERGIES. CURRENT HOME MEDICATIONS: The patient's family member did not bring his current accurate medication, so unable to review at this point. Based on report, the patient is on following medication; 1. Morphine 15 mg q.4 hourly p.r.n. 2. Metoprolol tartrate 75 mg twice daily. 3. Flomax 0.4 mg daily. 4. Lisinopril 5 mg p.o. daily. FAMILY HISTORY: No strong family history of premature coronary artery disease, stroke, or cancer. EMERGENCY ROOM COURSE: Reviewed. PHYSICAL EXAMINATION: VITAL SIGNS: Currently, blood pressure 111/71, pulse 98, respiratory rate 18, temperature 98.2, and saturation 99% on room air. Weight 77.1 kg. GENERAL: The patient is currently alert and oriented x3, in no acute distress. HEENT: Head; normocephalic and atraumatic. Eyes; pupils are round and reactive to light. Extraocular muscle intact. ENT, oropharynx within normal limits. Moist mucous membranes. No oral lesion. No pharyngeal erythema. No exudate. NECK: Glue on the right anterior neck, clean, dry, and intact. Backside suture is clean, dry, and intact. LUNGS: Clear to auscultation without any rhonchi or rales. CARDIAC: S1 and S2. Regular without any murmur. No gallop. No rub. ABDOMEN: Soft. Bowel sounds present. Nontender. Nondistended. No organomegaly. No mass. No suprapubic tenderness. BACK: Unremarkable. No CVA tenderness. EXTREMITIES: Upper extremity, passive movement of all joints are normal. Lower extremity, no edema. Good distal pulsation. SKIN: No skin rash. HEMATOLOGICAL SYSTEM: No lymphadenopathy. NEUROLOGIC: Nonfocal examination. SIGNIFICANT LABS: Urinalysis normal. BMP; sodium 122, potassium 4.7, chloride 87, carbon dioxide 29, BUN 16, creatinine 0.83, glucose 118, and calcium 8.5. Serum osmolality 265. LFT; AST 17, ALT 30, alkaline phosphatase 120, and albumin 3.7. Lactic acid 1.1. CBC; WBC 12.4, hemoglobin 13.6, and platelet 204. Urine osmolality 893 and urine sodium 44. ASSESSMENT AND PLAN: 1. Hyponatremia, likely suspecting from syndrome of inappropriate antidiuretic hormone secretion. 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 He also has neck pain, all contributing to likely syndrome of inappropriate antidiuretic hormone secretion. The patient is currently euvolemic. The patient's sodium was normal on December 30, 2018, and currently sodium is dropped acutely to 122. We will try NS at 100 mL/h and we will repeat BMP tomorrow. If sodium does not improve, then we will consider fluid restriction. Nephrology has been consulted. Hyponatremia workup sent. We will check TSH and random cortisol. 2. Non-small cell lung cancer, on therapy. 3. 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 Pathology report is pending after surgery. 4. Mitral valve prolapse with mitral valve repair. 5. Hypertension. 6. Benign enlargement of prostate. Admission to medical floor. Nephrology has been consulted. Continue IV fluid and monitor sodium. Control pain with morphine p.r.n. basis. DVT prophylaxis. SCD boots. No Lovenox because of recent neck surgery. GI prophylaxis. Pepcid 20 mg p.o. b.i.d. CODE STATUS: The patient is full code. The patient's is surrogate decision maker. DISPOSITION PLAN: Based on clinical course, we will resume selected home medication after confirmation. Plan of care discussed with the patient in detail. Job ID: [id number]
[2019-01-05 15:35] VITALS: BMI 24.1
[2019-01-05] MEDS ORDERED: Calcium Carbonate 500 MG ChewTAB PO PRN (15:54)
[2019-01-05] MEDS ORDERED: HYDROcodone/Acetaminophen 5/325 mg Tablet PO PRN (15:54)
[2019-01-05] MEDS ORDERED: Acetaminophen 325 MG TAB PO PRN (15:54)
[2019-01-05] MEDS ORDERED: Ondansetron ODT 4 MG TAB PO PRN (15:54)
[2019-01-05] MEDS ORDERED: Bisacodyl 10 MG SUPP PR PRN ×2 (15:54)
[2019-01-05] MEDS ORDERED: Guaifenesin DM 100-10/5 ML UDCUP PO PRN (15:54)
[2019-01-05] MEDS ORDERED: Sodium Chloride 0.65% Nasal 44 ML BOT EA NARE PRN (15:54)
[2019-01-05] MEDS ORDERED: hydrALAZINE 20 MG/ML VIAL SLOW IVP PRN (15:54)
[2019-01-05] MEDS ORDERED: Artificial Tears 18 DROP/0.9 ML EA EYE PRN (15:54)
[2019-01-05] MEDS ORDERED: Loratadine 10 MG TAB PO PRN (15:54)
[2019-01-05] MEDS ORDERED: Senokot S 8.6-50 MG TAB PO PRN ×2 (15:54)
[2019-01-05] MEDS ORDERED: Ondansetron PF 4 MG/2 ML Vial IVP PRN (15:54)
[2019-01-05] MEDS ORDERED: Loperamide HCl 2 MG CAP PO PRN ×2 (15:54)
[2019-01-05] MEDS ORDERED: Sodium Chloride 0.9% 1,000 ML IV SCH (15:54)
[2019-01-05] MEDS ORDERED: Zolpidem Tartrate 5 MG TAB PO PRN ×2 (15:54)
[2019-01-05] MEDS ORDERED: Cepastat Lozenges 1 LOZ PO PRN (15:54)
[2019-01-05] MEDS ORDERED: Diabetic Tussin 200 MG/10 ML UDCUP PO PRN (15:54)
[2019-01-05] MEDS ORDERED: FLU VACC QS2019-20(6MOS UP)/PF 60 MCG/0.5 ML SYRINGE IM ONE (17:00)
[2019-01-05] MEDS: Morphine 4 MG/ML VIAL SLOW IVP PRN ×2 (17:44→21:38)
[2019-01-05] MEDS ORDERED: Tolvaptan 15 MG TAB PO SCH (17:45)
[2019-01-05] MEDS: Famotidine 20 MG TAB PO SCH (20:40)
[2019-01-05] MEDS: Metoprolol Tartrate 25 MG TAB PO SCH (20:40)
--- NOTE | 2019-01-05 22:06 | PDOC.EVN ---
Event Note - Event Note Event Note: Family extremely upset about home meds not being reconciled including his Morphine ER and Morphine IR. They are adamant about continuing his home meds. Following discussion with Pharmacy I have discontinued PRN IV Morphine and PRN hydrocodone. Home meds reconciled.
--- NOTE | 2019-01-06 00:35 | CON ---
DATE OF CONSULTATION: REQUESTING PHYSICIAN: ER physician and Dr. Ledesma. REASON FOR CONSULTATION: Hyponatremia. IMPRESSION: Hyponatremia. Given the urinary chemistry, this is likely syndrome of inappropriate antidiuretic hormone and may be connected with whatever tumor the patient had in the neck. PLAN: 1. The patient's diet to be changed to regular diet with increased meat content. 2. We will start this patient on anti-ADH. 3. Discontinue current IV fluids. HISTORY OF PRESENT ILLNESS: History is that of a 63-year-old gentleman, recently operated in at [facility] for what described as tumor in the neck. The patient then about a few days ago had normal sodium, but at this time of presentation to the ER, the patient noted with a sodium of 122. As a result, decision has been taken to involve Renal in the management of this case. Preliminary investigation based on the urine chemistry is significant for possible SIADH. PAST MEDICAL HISTORY: Significant for hypertension, recent diagnosis of neck tumor status post resection, benign enlargement of prostate and lung cancer. SOCIAL HISTORY: . No tobacco. No illicit drug use. ALLERGIES: NO KNOWN DRUG ALLERGIES. MEDICATIONS: Reviewed and documented on [employer]. FAMILY HISTORY: Not significantly related to present illness. REVIEW OF SYSTEMS: As documented in the body of the history. All other systems were reviewed and found not to be significantly related to presenting illness. PHYSICAL EXAMINATION: GENERAL: The patient was found not to be in any obvious distress, noted with the following vital signs. VITAL SIGNS: Blood pressure 111/71, pulse 98, respiratory rate of 18, O2 saturation 99%. HEENT: Unremarkable. CARDIOVASCULAR: First and second sounds were heard. RESPIRATORY: Clear to auscultation. DIGESTIVE: Revealed a benign abdomen with positive bowel sounds. EXTREMITIES: No peripheral edema. SKIN: No new gross rash. LYMPHATICS: No peripheral lymphadenopathy. SUMMARY: A 63-year-old gentleman who presented here with worsening hyponatremia. Thank you for this consultation. We will follow with you. Job ID: [id number]
[2019-01-06] MEDS: Morphine IR Tab 15 MG TAB PO SCH ×3 (01:15→08:48)
[2019-01-06] MEDS ORDERED: HYDROcodone/Acetaminophen 5/325 mg Tablet PO PRN (04:16)
[2019-01-06 05:01] LABS: #Eosinphils 0.1 thou/uL (0.0-0.7); #Lymphocytes 0.7 thou/uL (1.20-3.40); #Monocytes 1.3 thou/uL (0.11-0.59); #Neutrophils 10.4 thou/uL (1.40-6.50); %Basophils 0.4 % (0.0-1.0); %Eosinophils 0.8 % (0.0-10.0); %Lymphocytes 5.9 % (21.0-51.0); %Monocytes 10.3 % (0.0-10.0); %Neutrophils 82.6 % (42.0-75.0); Hemoglobin 12.2 g/dL (14.0-18.0); Mean Corpuscular HGB CONC 34.5 g/dL (32.0-36.0); Mean Corpuscular Hemoglobin 29.7 pg (27.0-31.0); Mean Corpuscular Volume 86.2 fL (78.0-98.0); Platelet Count 186 thou/uL (130-400); RBC Distribution Width 12.2 % (11.5-14.5); Red Blood Cell (RBC) Count 4.12 mill/uL (4.70-6.10); White Blood Cell (WBC) Count 12.5 thou/uL (4.8-10.8)
[2019-01-06 05:11] LABS: INR-International Normal Ratio 1.1; PTT 41.2 SEC (22.9-36.1)
[2019-01-06 05:25] LABS: Anion Gap 12 mmol/L (10-20); BUN (Urea Nitrogen) 15 mg/dL (8.4-25.7); Calc. Creatinine Clearance 101 mL/min (70-130); Calcium 8.4 mg/dL (7.8-10.44); Carbon Dioxide 26 mmol/L (23-31); Chloride 87 mmol/L (98-107); Estimated GFR-MDRD Greater than 90; Glucose 113 mg/dL (80-115); Potassium 4.2 mmol/L (3.5-5.1); Sodium 121 mmol/L (136-145)
[2019-01-06] MEDS: Polyethylene Glycol 3350 17 GM Packet PO SCH ×2 (08:41→20:25)
[2019-01-06] MEDS: Metoprolol Tartrate 25 MG TAB PO SCH ×2 (08:44→20:24)
[2019-01-06] MEDS: Famotidine 20 MG TAB PO SCH ×2 (08:44→20:24)
[2019-01-06] MEDS ORDERED: Tolvaptan 15 MG TAB PO SCH (09:00)
[2019-01-06] MEDS ORDERED: Osimertinib Mesylate [Tagrisso] 80 MG PO SCH (09:00)
[2019-01-06] MEDS ORDERED: Morphine ER 30 MG TAB PO SCH ×2 (09:00→21:00)
--- NOTE | 2019-01-06 12:45 | PDOC.HOSPP ---
- Subjective Encounter Date: 01/06/19 Encounter Time: 12:44 Subjective: Met with patient and family. Posterior cervical pain present; Mrs. Mcallister is concerned about somnolence with upward titration of MS Contin (60mg bid, at home was on 30mg bid). Also presently MSIR scheduled, not prn. Discussed at bedside. One bowel movement today. Eating well. Prefers soft foods. - Objective Vital Signs & Weight: Vital Signs (12 hours) Temp Pulse Resp BP Pulse Ox 01/06/19 11:58 98.5 F 94 17 97/67 94 L 01/06/19 08:00 98.1 F 95 18 109/75 96 01/06/19 04:00 98.5 F 103 H 18 111/77 95 Weight Weight 168 lb I&O: 01/05/19 01/06/19 01/07/19 06:59 06:59 06:59 Intake Total 430 Balance 430 Result Diagrams: 01/06/19 04:14 01/06/19 04:14 Hospitalist ROS - Medication Medications: Active Medications Generic Name Dose Route Start Last Admin Trade Name Freq PRN Reason Stop Dose Admin Famotidine 20 mg 01/05/19 21:00 01/06/19 08:44 Pepcid PO 20 mg BID MARISABEL Administration Metoprolol Tartrate 75 mg 01/05/19 21:00 01/06/19 08:44 Lopressor PO 75 mg BID MARISABEL Administration Polyethylene Glycol 17 gm 01/06/19 09:00 01/06/19 08:41 Miralax PO 17 gm BID MARISABEL Administration Tolvaptan 15 mg 01/06/19 09:00 01/06/19 08:48 Samsca PO 15 mg DAILY MARISABEL Administration - Exam General - other findings: AOx3; slightly somnolent, awakens easily Eye: PERRL ENT: moist mucosa Neck: supple, symmetric, no JVD Heart: RRR Respiratory: CTAB Gastrointestinal: soft, non-tender Extremities: no edema Skin - other findings: Postop incisions clean/dry/intact Neurological: no focal deficits Musculoskeletal: normal strength, no muscle wasting Psychiatric: A&O x 3, somnolent Hosp A/P (1) Hyponatremia Code(s): E87.1 - HYPO-OSMOLALITY AND HYPONATREMIA Status: Acute (2) Postoperative pain after spinal surgery Code(s): G89.18 - OTHER ACUTE POSTPROCEDURAL PAIN Status: Acute (3) Non-small cell lung cancer Code(s): C34.90 - MALIGNANT NEOPLASM OF UNSP PART OF UNSP BRONCHUS OR LUNG Status: Acute (4) Hypertension Code(s): I10 - ESSENTIAL (PRIMARY) HYPERTENSION Status: Acute (5) History of mitral valve repair Code(s): Z98.890 - OTHER SPECIFIED POSTPROCEDURAL STATES Status: Acute (6) Neoplasm of cervical spine Code(s): D49.2 - NEOPLASM OF UNSP BEHAVIOR OF BONE, SOFT TISSUE, AND SKIN Status: Acute (7) Constipation due to opioid therapy Code(s): K59.03 - DRUG INDUCED CONSTIPATION; T40.2X5A - ADVERSE EFFECT OF OTHER OPIOIDS, INITIAL ENCOUNTER Status: Acute (8) BPH (benign prostatic hyperplasia) Code(s): N40.0 - BENIGN PROSTATIC HYPERPLASIA WITHOUT LOWER URINRY TRACT SYMP Status: Chronic Qualifiers: Lower urinary tract symptom presence: symptoms absent Qualified Code(s): N40.0 - Benign prostatic hyperplasia without lower urinary tract symptoms - Plan Postop pain on background of chronic pain - Change MS Contin to 30mg AM and 60mg PM. Change MSIR to q 4 hours prn instead of scheduled. PT/OT eval/treat; no cervical collar as per my discussion with Mrs. Mcallister (not required postop by surgeon at [facility]) Hyponatriemia - Tolvaptan on board, check AML, appreciate nephrology care, likely SIADH Discussed with pt/family, questions answered.
[2019-01-06] MEDS ORDERED: Sodium Chloride 0.9% 500 ML IV SCH (13:30)
[2019-01-06] MEDS: Morphine IR Tab 15 MG TAB PO PRN ×3 (14:32→23:57)
[2019-01-06] MEDS: Sodium Chloride 0.9% 1,000 ML IV SCH ×2 (14:35→18:47)
[2019-01-06 20:16] LABS: Sodium 130 mmol/L (136-145)
[2019-01-07 01:43] LABS: Sodium 132 mmol/L (136-145)
[2019-01-07] MEDS: Sodium Chloride 0.9% 1,000 ML IV SCH ×2 (03:00→10:48)
[2019-01-07] MEDS: Morphine IR Tab 15 MG TAB PO PRN ×2 (05:52→16:25)
[2019-01-07 08:04] VITALS: BP 135/88; TEMP 98.4
[2019-01-07] MEDS: Famotidine 20 MG TAB PO SCH (08:04)
[2019-01-07] MEDS: Metoprolol Tartrate 25 MG TAB PO SCH (08:04)
[2019-01-07] MEDS: Polyethylene Glycol 3350 17 GM Packet PO SCH (08:04)
--- NOTE | 2019-01-07 08:07 | PRG ---
DATE OF SERVICE: 01/07/2019 SUBJECTIVE: The patient is seen and examined with no new complaints, noted with the following vital signs. OBJECTIVE: VITAL SIGNS: Temperature 98.5, pulse 94, respiratory rate of 17, O2 saturation 94% with blood pressure 97/67. HEENT: Unremarkable. Moist oral mucosa. NECK: Supple. No conjunctival injection or icterus. CARDIOVASCULAR SYSTEM: First and second heart sounds were heard. RESPIRATORY SYSTEM: Clear to auscultation. DIGESTIVE SYSTEM: Reviewed a benign abdomen with positive bowel sounds. EXTREMITIES: No peripheral edema. SKIN: No new gross rash. LYMPHATICS: No peripheral lymphadenopathy. LABORATORY INVESTIGATIONS: Significant for sodium of 121 IMPRESSION: 1. Hyponatremia likely in the context of intravascular depletion based on the urine chemistry . PLAN: 1. suggestive of SIADH; however, the patient did not respond very well to Tolvaptan hypovolemic, hyponatremic. Therefore we will stop Tolvaptan and initiate IV fluid resuscitation and adjustments made accordingly. 2. Further management will be dependent on the clinical course. Job ID: [id number]
[2019-01-07 08:46] LABS: Calcium 8.3 mg/dL (7.8-10.44); Chloride 100 mmol/L (98-107); Potassium 5.3 mmol/L (3.5-5.1); Sodium 133 mmol/L (136-145)
[2019-01-07 08:47] LABS: Glucose 98 mg/dL (80-115)
[2019-01-07 08:48] LABS: Carbon Dioxide 26 mmol/L (23-31)
[2019-01-07 08:50] LABS: Calc. Creatinine Clearance 106 mL/min (70-130); Estimated GFR-MDRD Greater than 90
[2019-01-07 08:51] LABS: BUN (Urea Nitrogen) 12 mg/dL (8.4-25.7)
[2019-01-07] MEDS ORDERED: Morphine ER 30 MG TAB PO SCH (09:00)
[2019-01-07 09:06] LABS: Anion Gap 12 mmol/L (10-20)
--- NOTE | 2019-01-07 17:08 | PRG ---
DATE OF SERVICE: SUBJECTIVE: The patient is seen and examined, much more alert, seems much better. Noted with the following vital signs. OBJECTIVE: VITAL SIGNS: Afebrile. Temperature 98.7, pulse 108, respiratory rate of 18, O2 saturation of 98%, blood pressure 127/77 to 135/88. HEENT: Unremarkable. CARDIOVASCULAR: First and second heart sounds were heard. RESPIRATORY: Clear to auscultation. DIGESTIVE: Revealed a benign abdomen. Positive bowel sounds. EXTREMITIES: No peripheral edema. SKIN: No new gross rash. LYMPHATICS: No peripheral lymphadenopathy. LABORATORY INVESTIGATION: Significant for sodium that has gone up to 133, potassium 5.3. IMPRESSION: Hyponatremia in the context of intravascular depletion, responded very well to IV fluid resuscitation. PLAN: 1. He is okay at this point to discontinue IV fluid. 2. The patient to continue with other management. 3. From the renal standpoint, the patient is due for discharge. Job ID: [id number]
--- NOTE | 2019-01-08 03:06 | DIS ---
DATE OF ADMISSION: 01/05/2019 DATE OF DISCHARGE: 01/07/2019 PRIMARY CARE PHYSICIAN: Dr. Mix, patient is followed on a care protocol at [facility]. REASON FOR ADMISSION: Hyponatremia. PRINCIPAL DIAGNOSES ON ADMISSION: 1. Hyponatremia. 2. [id number]-rjsxntb postoperative pain. 3. Non-small cell lung cancer. DISCHARGE DIAGNOSES: 1. Hyponatremia, hypovolemic, improved, no evidence of syndrome of inappropriate antidiuretic hormone secretion. 2. Non-small cell lung cancer, followed at [facility]. 3. 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 4. Fusion at [facility], pathology pending. 5. Mitral valve prolapse with history of previous mitral valve repair. 6. Essential hypertension. 7. Benign prostatic hypertrophy. 8. Qnxbi-zx-srbhipt postoperative pain. HOSPITAL COURSE: Mr. Mcallister is a very pleasant 63-year-old gentleman, presenting to the emergency department on 01/05/2019 with worsening pain. He reported acute postoperative pain following posterior cervical surgery done December 26, 2018 at [facility]. He stayed in the hospital about 5 days after surgery and was discharged on December 31, 2018. Surgery conducted secondary to tumor, which was removed from cervical spine. Pathology is pending. At the time of discharge, laboratory values including sodium were normal. On presentation, he complained of worsened neck pain, was noted on labs to have mild leukocytosis and hyponatremia with serum sodium of 122. He was subsequently admitted for additional evaluation and care. Initially, dose titration made for improved pain control, MS Contin 60 mg p.o. twice daily with MSIR 15 mg p.o. q.4 hourly. However, on hospital day #2, I saw and evaluated the patient, and noted concerns by the family that he was overly somnolent. Further dose adjustment made with 30 mg of MS Contin in the morning and 60 mg in the evening, with interval improvement. Additionally, MSIR changed to q.4 hours hourly p.r.n. instead of scheduled as had previously been dosed. Going forward, he will continue the MS Contin 30 mg in the morning, 60 mg in the evening, and MSIR 15 mg every 4 hours as needed for breakthrough pain. Prescription provided by me for MS Contin 60 mg, dispensing 30 tablets, to provide coverage until they are able to get to their next followup appointment at [facility] which is in about 2 weeks. Regarding hyponatremia, patient evaluated by Dr. Manzo from nephrology services in consultation. Initially, clinical suspicion and lab supportive of diagnosis SIADH, however, patient did not respond as expected to tolvaptan. Labs were then repeated, noting low urine sodium. Subsequently, normal saline 125 mL/hour initiated, with interval improvement in his clinical picture and interval resolution of hyponatremia with serum sodium of 132 on 01/07/2019. As such, he has been stable to transition to home per Nephrology team. The patient will continue his postoperative recovery and has follow up scheduled with [facility]. I saw and evaluated the patient on the day of discharge, his affect is much brighter, his states he is at his baseline. PHYSICAL EXAMINATION: LUNGS: Clear to auscultation. ABDOMEN: Soft and nontender. HEART: Regular rate and rhythm. Posterior cervical incision site is clean, dry , and intact. DISCHARGE FOLLOWUP: Follow up with Dr. Mix. Follow up with Dr. Manzo in 2-4 weeks or sooner, if needed. Follow up with [facility] as previously scheduled. Diet: Regular. MEDICATIONS: 1. Metoprolol tartrate 75 mg p.o. b.i.d. 2. MiraLAX 17 g p.o. b.i.d. 3. Lisinopril 5 mg p.o. daily. 4. Tagrisso 80 mg p.o. daily. 5. Senna/docusate 8.6 mg takes 2 in the morning, 2 at noon, and 1 at night. 6. Flomax 0.4 mg, takes 2 capsules p.o. following dinner. 7. MS Contin 30 mg p.o. q.a.m. and 60 mg p.o. q.p.m. 8. morphine IR 50 mg p.o. q.4 hourly p.r.n. breakthrough pain. 9. At home, patient/family have morphine IR 15 mg, and morphine extended release 30 mg. Prescription provided for MS Contin 60 mg. CONDITION ON DISCHARGE: Improved. TIME SPENT: Time spent on care and discharge planning, 40 minutes. Job ID: [id number] MTDD
== END 2019-01-07 18:05 | disposition home or self-care (01) | DRG 644 ==
LOC: ERS 09:00 → T4-B 13:17
PROVIDERS: ADMIT Internal Medicine; ATTEND Internal Medicine
DX: E22.2 Syndrome of inappropriate secretion of antidiuretic hormone (principal); C34.90 Malignant neoplasm of unspecified part of unspecified bronchus or lung; C79.51 Secondary malignant neoplasm of bone; I10 Essential (primary) hypertension; N40.0 Benign prostatic hyperplasia without lower urinary tract symptoms; F41.9 Anxiety disorder, unspecified; F32.9 Major depressive disorder, single episode, unspecified; K59.03 Drug induced constipation; T40.2X5A Adverse effect of other opioids, initial encounter; Z90.49 Acquired absence of other specified parts of digestive tract; Z79.899 Other long term (current) drug therapy
CPT/HCPCS: 36415; 72125; 80048; 80053; 81003; 82533; 83605; 83930; 83935; 84300; 84443; 85025; 85610; 85730; 87040; 90471; 90686; 96374; 96375; 96376; G0008; J2270; J2405

== ENCOUNTER 2019-01-19 20:08 | Emergency (ER) | payer BC ==
[2019-01-19 21:15] LABS: INR-International Normal Ratio 1.1; PTT 34.7 SEC (22.9-36.1); Prothrombin Time 14.1 SEC (12.0-14.7)
[2019-01-19 21:17] LABS: Hemoglobin 12.2 g/dL (14.0-18.0); Mean Corpuscular HGB CONC 33.3 g/dL (32.0-36.0); Mean Corpuscular Volume 87.1 fL (78.0-98.0); Mean Platelet Volume 7.1 fL (7.4-10.4); Platelet Count 224 thou/uL (130-400); RBC Distribution Width 12.5 % (11.5-14.5); Red Blood Cell (RBC) Count 4.21 mill/uL (4.70-6.10); White Blood Cell (WBC) Count 5.1 thou/uL (4.8-10.8)
[2019-01-19 21:31] LABS: Band 2 % (5-11); Eosinophils 1 % (0-10); Lymphocytes 22 % (21-51); MDiff Complete? YES; Monocytes 11 % (0-10); Neutrophil 64 % (42-75)
[2019-01-19 21:32] LABS: ALT (SGPT) 17 U/L (8-55); AST (SGOT) 16 U/L (5-34); Albumin 3.6 g/dL (3.4-4.8); Alkaline Phosphatase 117 U/L (40-110); Anion Gap 12 mmol/L (10-20); BUN (Urea Nitrogen) 18 mg/dL (8.4-25.7); Bilirubin, Total 0.4 mg/dL (0.2-1.2); Calc. Creatinine Clearance 0 mL/min (70-130); Calcium 8.9 mg/dL (7.8-10.44); Carbon Dioxide 28 mmol/L (23-31); Chloride 101 mmol/L (98-107); Estimated GFR-MDRD 77; Globulin 3.5 g/dL (2.4-3.5); Glucose 135 mg/dL (80-115); Potassium 4.2 mmol/L (3.5-5.1); Protein, Total 7.1 g/dL (5.8-8.1); Sodium 137 mmol/L (136-145)
--- NOTE | 2019-01-19 22:48 | CT ---
CTA CHEST WITH CONTRAST, AND 3-D VOLUME RENDERING CLINICAL INDICATION: Cough Comparison exam: 12/03/2017 FINDINGS: Pulmonary embolus:No significant filling defect is identified within the pulmonary arteries. Pulmonary parenchymal consolidation:Redemonstration of bilateral pulmonary parenchymal opacities, wit h dense consolidation containing air bronchograms again seen at the right perihilar region extending into the right upper, middle and lower lobes, with associated pleural fluid, the volume of which has slightly increased. Groundglass alveolar opacity of the left lung has significantly decreased, with mild residua remaining Pleural effusion: Increasing right pleural fluid Pneumothorax: None Osseous structures: Stable IMPRESSION: No acute pulmonary embolus. Redemonstration of multifocal consolidation of the right lung with prominent masslike consolidation a t the right perihilar region. This may relate to dense consolidation from pneumonia although the possibility of underlying neoplasm cannot be excluded and should be followed up to resolution. Significant interval improvement of groundglass opacification of the left lung with mild residual rem aining. Mild right pleural fluid, increasing in volume. Transcribed Date/Time: 01/19/2019 11:01 PM
--- NOTE | 2019-01-23 15:48 | EKG ---
Test Reason : Blood Pressure : / mmHG Vent. Rate : 096 BPM Atrial Rate : 096 BPM P-R Int : 216 ms QRS Dur : 090 ms QT Int : 346 ms P-R-T Axes : 060 056 079 degrees QTc Int : 437 ms Sinus rhythm with 1st degree A-V block Possible Left atrial enlargement Borderline ECG Confirmed by JONG LOPEZ ([id number]), script editor DENIS LAWSON ([id number]) on 01/23/2019 3:47:46 PM Referred By: Confirmed By:JONG LOPEZ
== END 2019-01-19 23:43 | disposition home or self-care (01) ==
LOC: ERS 20:08
DX: R04.2 Hemoptysis (principal); I10 Essential (primary) hypertension; Z79.899 Other long term (current) drug therapy
CPT/HCPCS: 36415; 71275; 80053; 85025; 85610; 85730; 93005

== ENCOUNTER 2020-12-18 12:01 | Outpatient (CLI) | payer BC ==
[2020-12-18 12:56] LABS: Hemoglobin 13.7 g/dL (13.5-17.5); Mean Corpuscular HGB CONC 32.9 g/dL (32.0-36.0); Mean Corpuscular Hemoglobin 29.4 pg (27.0-33.0); Mean Corpuscular Volume 89.5 fl (81.2-95.1); Mean Platelet Volume 10.6 fl (7.4-10.4); Platelet Count 143 10x3/uL (150-450); RBC Distribution Width 13.2 % (11.5-14.5); Red Blood Cell (RBC) Count 4.66 10x6/uL (4.32-5.72); White Blood Cell (WBC) Count 7.8 10x3/uL (3.5-10.5)
[2020-12-18 13:20] LABS: PTT 29.3 sec (22.0-33.0); Prothrombin Time 11.1 sec (9.5-12.1)
[2020-12-18 13:21] LABS: Anion Gap 16 mmol/L (10-20); BUN (Urea Nitrogen) 20 mg/dL (8.4-25.7); Calc. Creatinine Clearance 0 mL/min (70-130); Calcium 9.4 mg/dL (7.8-10.44); Carbon Dioxide 24 mmol/L (23-31); Chloride 102 mmol/L (98-107); Glucose 96 mg/dL (80-115); Potassium 5.6 mmol/L (3.5-5.1); Sodium 136 mmol/L (136-145)
[2020-12-18 22:22] LABS: SARS-CoV-2 PCR by NAA Not Detected (NotDetected)
== END 2020-12-18 12:02 | disposition home or self-care (01) ==
LOC: LABBT 12:01
PROVIDERS: ATTEND Urology
DX: Z01.812 Encounter for preprocedural laboratory examination (principal); N32.0 Bladder-neck obstruction; Z20.822 Contact with and (suspected) exposure to COVID-19; R30.0 Dysuria
CPT/HCPCS: 80048; 85027; 85610; 85730; 87086; U0003; U0005

== ENCOUNTER 2020-12-21 11:47 | Inpatient (IN) | payer BC ==
[2020-12-21] MEDS ORDERED: Levofloxacin 500 mg/D5W 100 ml Premix Bag ONE (12:48)
[2020-12-21] MEDS ORDERED: Vancomycin 1 GM/200 ML BAG ONE (12:48)
[2020-12-21] MEDS ORDERED: Fentanyl 100 MCG/2 ML VIAL ONE ×3 (14:13→17:27)
[2020-12-21] MEDS ORDERED: Glycopyrrolate 0.2 MG/ML 5 ML SYRINGE ONE (14:23)
[2020-12-21] MEDS ORDERED: Rocuronium Bromide 10 MG/ML (10ML VIAL) ONE (14:23)
[2020-12-21] MEDS ORDERED: Ketorolac Tromethamine 30 MG/ML VIAL ONE (14:23)
[2020-12-21] MEDS ORDERED: PROPOFOL 200 MG/20 ML VIAL ONE (14:23)
[2020-12-21] MEDS ORDERED: PHENYLEPHRINE-NS 100 MCG/ML 10 ML SYRINGE ONE (14:23)
[2020-12-21] MEDS ORDERED: Lidocaine 1% PF 5 ML VIAL ONE (14:23)
[2020-12-21] MEDS ORDERED: Ondansetron PF 4 MG/2 ML Vial ONE (14:23)
[2020-12-21] MEDS ORDERED: Dexamethasone 20 MG/5 ML VIAL ONE (14:23)
[2020-12-21] MEDS ORDERED: Ondansetron HCl/PF 4 MG/2 ML Vial IVP PRN (16:03)
[2020-12-21] MEDS ORDERED: Morphine Sulfate 2 MG/ML SYRINGE SLOW IVP PRN (16:03)
[2020-12-21] MEDS ORDERED: PACU-Morphine 4MG/ML VIAL SLOW IVP PRN (16:03)
[2020-12-21] MEDS ORDERED: Promethazine HCl 25 MG/ML VIAL IM/IV PRN (16:03)
[2020-12-21] MEDS ORDERED: Acetaminophen 500 MG TAB PO PRN (16:05)
[2020-12-21] MEDS ORDERED: B & O PR PRN (16:10)
[2020-12-21] MEDS ORDERED: Morphine 4 MG/ML VIAL ONE (16:58)
[2020-12-21] MEDS ORDERED: Non-Formulary Medication 1 EACH PO PRN (17:13)
[2020-12-21] MEDS ORDERED: D5 1/2 NS w/20 mEq KCL 1,000 ML ONE (17:14)
[2020-12-21] MEDS ORDERED: Morphine 2 MG/ML VIAL ONE (17:27)
[2020-12-21] MEDS: Metoprolol Tartrate 25 MG TAB PO SCH (20:47)
[2020-12-21 22:39] VITALS: BMI 22.3
[2020-12-22] MEDS: D5 1/2 NS w/20 mEq KCL 1,000 ML IV SCH ×3 (06:19→17:48)
[2020-12-22] MEDS: Metoprolol Tartrate 25 MG TAB PO SCH ×2 (08:33→20:52)
[2020-12-22] MEDS: Finasteride 5 MG TAB PO SCH (08:33)
[2020-12-22] MEDS ORDERED: OSIMERTINIB 80 MG PO SCH (09:00)
[2020-12-22] MEDS ORDERED: Vancomycin 1 GM in Premix Bag 1 BAG IVPB SCH ×2 (13:00→15:00)
[2020-12-23] MEDS: Metoprolol Tartrate 25 MG TAB PO SCH (08:36)
[2020-12-23] MEDS: D5 1/2 NS w/20 mEq KCL 1,000 ML IV SCH (08:36)
[2020-12-23] MEDS: Finasteride 5 MG TAB PO SCH (08:36)
[2020-12-23 09:40] VITALS: BP 132/87; TEMP 98.7
== END 2020-12-23 10:10 | disposition home or self-care (01) | DRG 666 ==
LOC: SDC 11:47 → SURG B 16:12
PROVIDERS: ADMIT Urology; ATTEND Urology
PROC: 0VB08ZZ Excision of Prostate, Via Natural or Artificial Opening Endoscopic (ICD-10-PCS; principal; 2020-12-21)
DX: N32.0 Bladder-neck obstruction (principal); N39.0 Urinary tract infection, site not specified; I10 Essential (primary) hypertension; Z20.822 Contact with and (suspected) exposure to COVID-19; N40.1 Benign prostatic hyperplasia with lower urinary tract symptoms; R33.8 Other retention of urine; R31.9 Hematuria, unspecified; Z85.118 Personal history of other malignant neoplasm of bronchus and lung
CPT/HCPCS: 80048; 85027; 85610; 85730; 87086; 88305; 88341; 88342; J1100; J1885; J1956; J2270; J2405; J2704; J3010; J3370; J3480; U0003; U0005

== ENCOUNTER 2022-02-21 10:50 | Inpatient (IN) | payer BC, MEDICARE ==
[~2022-02-21 10:50] MED LIST changes: -ISOVUE-370 76%-LOCM 1 ML ONE; +Iopamidol-370 76% 500 ML 1 ML ONE
[2022-02-21 11:32] LABS: Hemoglobin 12.9 g/dL (14.0-18.0); Mean Corpuscular HGB CONC 33.2 g/dL (32.0-36.0); Mean Corpuscular Hemoglobin 31.3 pg (27.0-31.0); Mean Corpuscular Volume 94.1 fl (78.0-98.0); Mean Platelet Volume 8.3 fL (7.4-10.4); Platelet Count 145 10x3/uL (130-400); RBC Distribution Width 12.7 % (11.5-14.5); Red Blood Cell (RBC) Count 4.11 mill/uL (4.70-6.10); White Blood Cell (WBC) Count 5.7 10x3/uL (4.8-10.8)
[2022-02-21 11:39] LABS: ALT (SGPT) 20 U/L (8-55); AST (SGOT) 31 U/L (5-34); Albumin 2.9 g/dL (3.4-4.8); Alkaline Phosphatase 67 U/L (40-110); Anion Gap 14 mmol/L (10-20); BUN (Urea Nitrogen) 19 mg/dL (8.4-25.7); Bilirubin, Total 0.6 mg/dL (0.2-1.2); Calc. Creatinine Clearance 0 mL/min (70-130); Calcium 8.1 mg/dL (7.8-10.44); Carbon Dioxide 23 mmol/L (23-31); Chloride 94 mmol/L (98-107); Estimated GFR 82; Globulin 3.3 g/dL (2.4-3.5); Glucose 140 mg/dL (80-115); Potassium 3.4 mmol/L (3.5-5.1); Protein, Total 6.2 g/dL (5.8-8.1); Sodium 128 mmol/L (136-145)
[2022-02-21 11:41] LABS: Bacteria/HPF 4+ HPF (None Seen); Bilirubin Negative (Negative); Blood, Urine 1+ (Negative); Clarity Turbid (Clear); Glucose, Urine (Dipstick) 30 mg/dL (Negative); Ketone, Urine 10 mg/dL (Negative); Leukocyte Negative Leu/uL (Negative); Nitrite Negative (Negative); Protein, Urine (Dipstick) 200 mg/dL (Neg-Trace); RBC/HPF 0-3 HPF (0-3); Specific Gravity, Urine 1.034 (1.002-1.036); Squamous Epithelial 0-3 HPF (0-3)
[2022-02-21 11:51] LABS: PTT 51.1 sec (22.9-36.1)
[2022-02-21 11:57] LABS: INR-International Normal Ratio 1.2; Prothrombin Time 15.2 sec (12.0-14.7)
[2022-02-21 12:06] LABS: Band 21 % (5-11); Lymphocytes 10 % (21-51); MDiff Complete? YES; Monocytes 6 % (0-10); Neutrophil 62 % (42-75); Platelet Morphology Comment Appears Adequate; RBC Morphology Normal; Reactive Lymphocytes 1 % (0-10); Vacuoles SLIGHT
[2022-02-21 12:34] LABS: CKMB 2.9 ng/mL (0-6.6)
[2022-02-21] MEDS ORDERED: Piperacillin/Tazobactam 4.5 GM VIAL ONE (13:42)
[2022-02-21] MEDS ORDERED: Azithromycin 250 MG TAB ONE (14:14)
[2022-02-21] MEDS ORDERED: Enoxaparin Sodium 100 MG/ML SYRINGE ONE (14:15)
[2022-02-21] MEDS ORDERED: Vancomycin 1 GM/200 ML (FROZEN) BAG ONE (14:15)
[2022-02-21] MEDS ORDERED: Calcium Carbonate 500 MG ChewTAB PO PRN (14:20)
[2022-02-21] MEDS ORDERED: Ondansetron PF 4 MG/2 ML Vial IVP PRN (14:20)
[2022-02-21] MEDS ORDERED: Ondansetron ODT 4 MG TAB PO PRN (14:20)
[2022-02-21 14:22] LABS: Lactic Acid 1.5 mmol/L (0.5-2.2)
[2022-02-21] MEDS ORDERED: Potassium Chloride 20 MEQ TAB PO SCH (14:45)
[2022-02-21 15:02] LABS: SARS-CoV-2 NAA Rapid Test Not Detected (NotDetected)
[2022-02-21 15:21] LABS: Troponin I 0.117 ng/mL (< 0.028)
[2022-02-21] MEDS ORDERED: Cefepime 2 GM VIAL ONE (18:12)
[2022-02-21] MEDS ORDERED: Potassium Chloride 20 MEQ TAB ONE (18:12)
[2022-02-21] MEDS: Cefepime 2 GM in Sodium Chloride 0.9% 100 ML IVPB SCH (18:17)
[2022-02-21 18:45] VITALS: BMI 23.8
[2022-02-21 19:04] LABS: Troponin I 0.096 ng/mL (< 0.028)
[2022-02-21] MEDS ORDERED: Vancomycin 1 GM in Premix Bag 1 BAG IVPB SCH (21:00)
[2022-02-21] MEDS: Tamsulosin HCl 0.4 MG CAP PO SCH (21:11)
[2022-02-21] MEDS: Benzonatate 100 MG CAP PO SCH (21:11)
[2022-02-21] MEDS: Diphenoxylate HCl/Atropine Tablet PO PRN (21:12)
[2022-02-21] MEDS: Metoprolol Tartrate 25 MG TAB PO SCH (21:12)
[2022-02-21] MEDS: Zolpidem Tartrate 5 MG TAB PO PRN (21:12)
[2022-02-21] MEDS: VANCOMYCIN 1.25 GM/250 ML BAG 1.25 GM in Premix Bag 1 BAG IVPB SCH (22:09)
[2022-02-22] MEDS ORDERED: Acetaminophen 325 MG TAB PO PRN (00:34)
[2022-02-22] MEDS ORDERED: Acetaminophen 325 MG TAB PO SCH (00:45)
[2022-02-22 04:51] LABS: Hemoglobin A1c 4.9 % (4.0-6.0)
[2022-02-22 05:03] LABS: ALT (SGPT) 19 U/L (8-55); AST (SGOT) 31 U/L (5-34); Albumin 2.7 g/dL (3.4-4.8); Alkaline Phosphatase 61 U/L (40-110); Anion Gap 12 mmol/L (10-20); BUN (Urea Nitrogen) 13 mg/dL (8.4-25.7); Bilirubin, Total 0.5 mg/dL (0.2-1.2); CRP (Inflammatory) 20.23 mg/dL (= or < 0.5); Calc. Creatinine Clearance 96 mL/min (70-130); Calcium 7.2 mg/dL (7.8-10.44); Carbon Dioxide 25 mmol/L (23-31); Cardiac Risk 4.7 (Less than 4.5); Chloride 95 mmol/L (98-107); Cholesterol 109 mg/dl (< 200 Desired); Estimated GFR 98; Globulin 2.1 g/dL (2.4-3.5); Glucose 109 mg/dL (80-115); HDL Cholesterol 23 mg/dL (>60 Neg Risk); LDL Cholesterol, Calculated 67 mg/dL; Potassium 4.2 mmol/L (3.5-5.1); Protein, Total 4.8 g/dL (5.8-8.1); Sodium 128 mmol/L (136-145); Triglycerides 97 mg/dL (Less than 150)
[2022-02-22 05:42] LABS: Band 20 % (5-11); Hemoglobin 11.4 g/dL (14.0-18.0); Lymphocytes 7 % (21-51); MDiff Complete? YES; Mean Corpuscular Hemoglobin 30.2 pg (27.0-31.0); Mean Corpuscular Volume 94.3 fl (78.0-98.0); Mean Platelet Volume 8.5 fL (7.4-10.4); Monocytes 18 % (0-10); Neutrophil 55 % (42-75); Platelet Count 165 10x3/uL (130-400); RBC Distribution Width 12.8 % (11.5-14.5); Red Blood Cell (RBC) Count 3.78 mill/uL (4.70-6.10)
[2022-02-22] MEDS: Cefepime 2 GM in Sodium Chloride 0.9% 100 ML IVPB SCH ×2 (05:54→18:00)
[2022-02-22] MEDS ORDERED: Finasteride 5 MG TAB PO SCH (09:00)
[2022-02-22] MEDS ORDERED: FLU VACC QS2022-23(6MOS UP)/PF 60 MCG/0.5 ML SYRINGE IM ONE (09:00)
[2022-02-22] MEDS ORDERED: (Osimertinib Mesylate [Tagrisso] 80 MG Tablet) PO SCH (09:00)
[2022-02-22] MEDS: Metoprolol Tartrate 25 MG TAB PO SCH ×2 (09:25→20:32)
[2022-02-22] MEDS: Enoxaparin Sodium 40 MG/0.4 ML SYRINGE SC SCH (09:25)
[2022-02-22] MEDS: Benzonatate 100 MG CAP PO SCH ×3 (09:25→20:33)
[2022-02-22 11:34] LABS: Legionella Urinary Ag Negative (Negative); Strep pneumo Urine Ag NEGATIVE (NEGATIVE)
[2022-02-22] MEDS: VANCOMYCIN 1.25 GM/250 ML BAG 1.25 GM in Premix Bag 1 BAG IVPB SCH ×2 (11:42→22:01)
[2022-02-22] MEDS: Azithromycin 250 MG TAB PO SCH (13:03)
[2022-02-22] MEDS: guaiFENesin/Codeine 200 mg/20 mg 10 ml Cup PO PRN ×2 (13:04→18:40)
[2022-02-22] MEDS: (Osimertinib Mesylate [Tagrisso] 80 MG Tablet) PO SCH (18:00)
[2022-02-22] MEDS: Finasteride 5 MG TAB PO SCH (18:00)
[2022-02-22] MEDS: Diphenoxylate HCl/Atropine Tablet PO PRN (18:05)
[2022-02-22] MEDS: Tamsulosin HCl 0.4 MG CAP PO SCH (20:33)
[2022-02-22] MEDS: Zolpidem Tartrate 5 MG TAB PO PRN (23:22)
[2022-02-23 05:16] LABS: Anion Gap 11 mmol/L (10-20); BUN (Urea Nitrogen) 10 mg/dL (8.4-25.7); Calc. Creatinine Clearance 110 mL/min (70-130); Calcium 7.9 mg/dL (7.8-10.44); Carbon Dioxide 28 mmol/L (23-31); Chloride 91 mmol/L (98-107); Estimated GFR 102; Glucose 108 mg/dL (80-115); Potassium 3.7 mmol/L (3.5-5.1); Sodium 126 mmol/L (136-145)
[2022-02-23 05:39] LABS: Band 4 % (5-11); Hemoglobin 11.7 g/dL (14.0-18.0); Lymphocytes 7 % (21-51); MDiff Complete? YES; Mean Corpuscular HGB CONC 30.4 g/dL (32.0-36.0); Mean Corpuscular Hemoglobin 29.4 pg (27.0-31.0); Mean Corpuscular Volume 96.6 fl (78.0-98.0); Mean Platelet Volume 7.7 fL (7.4-10.4); Metamyelocyte 1 % (0-0); Monocytes 20 % (0-10); Neutrophil 68 % (42-75); Platelet Count 195 10x3/uL (130-400); RBC Distribution Width 13.1 % (11.5-14.5); Red Blood Cell (RBC) Count 3.98 mill/uL (4.70-6.10); White Blood Cell (WBC) Count 6.4 10x3/uL (4.8-10.8)
[2022-02-23] MEDS: Cefepime 2 GM in Sodium Chloride 0.9% 100 ML IVPB SCH ×2 (05:49→17:30)
[2022-02-23] MEDS: Benzonatate 100 MG CAP PO SCH ×3 (09:57→19:39)
[2022-02-23] MEDS: Metoprolol Tartrate 25 MG TAB PO SCH ×2 (09:58→19:39)
[2022-02-23] MEDS: Enoxaparin Sodium 40 MG/0.4 ML SYRINGE SC SCH (09:58)
[2022-02-23] MEDS: Vancomycin 1.5 GRAM/300 ML BAG 1.5 GM in Premix Bag 1 BAG IVPB SCH ×2 (10:57→21:44)
[2022-02-23] MEDS ORDERED: Furosemide 40 MG/4 ML VIAL SLOW IVP SCH (11:00)
[2022-02-23] MEDS: Azithromycin 250 MG TAB PO SCH (15:10)
[2022-02-23] MEDS: guaiFENesin/Codeine 200 mg/20 mg 10 ml Cup PO PRN ×2 (15:11→21:59)
[2022-02-23] MEDS: Finasteride 5 MG TAB PO SCH (17:31)
[2022-02-23] MEDS: Diphenoxylate HCl/Atropine Tablet PO PRN (17:31)
[2022-02-23] MEDS: (Osimertinib Mesylate [Tagrisso] 80 MG Tablet) PO SCH (17:31)
[2022-02-23] MEDS: Tamsulosin HCl 0.4 MG CAP PO SCH (19:39)
[2022-02-24] MEDS: Cefepime 2 GM in Sodium Chloride 0.9% 100 ML IVPB SCH ×2 (05:31→18:06)
[2022-02-24 06:03] LABS: Anion Gap 11 mmol/L (10-20); BUN (Urea Nitrogen) 10 mg/dL (8.4-25.7); Calc. Creatinine Clearance 102 mL/min (70-130); Carbon Dioxide 31 mmol/L (23-31); Chloride 88 mmol/L (98-107); Estimated GFR 100; Glucose 103 mg/dL (80-115); Magnesium 1.6 mg/dL (1.6-2.6); Potassium 3.3 mmol/L (3.5-5.1); Sodium 127 mmol/L (136-145)
[2022-02-24 06:42] LABS: Hemoglobin 12.1 g/dL (14.0-18.0); MDiff Complete? YES; Mean Corpuscular HGB CONC 32.3 g/dL (32.0-36.0); Mean Corpuscular Hemoglobin 30.1 pg (27.0-31.0); Mean Corpuscular Volume 93.2 fl (78.0-98.0); Platelet Count 214 10x3/uL (130-400); RBC Distribution Width 12.9 % (11.5-14.5); Red Blood Cell (RBC) Count 4.02 mill/uL (4.70-6.10); White Blood Cell (WBC) Count 7.1 10x3/uL (4.8-10.8)
[2022-02-24 06:43] LABS: Band 7 % (5-11); Lymphocytes 4 % (21-51); Monocytes 18 % (0-10); Neutrophil 71 % (42-75)
[2022-02-24] MEDS: Potassium Chloride 20 MEQ TAB PO SCH ×2 (08:55→13:22)
[2022-02-24] MEDS: Benzonatate 100 MG CAP PO SCH ×3 (08:56→21:21)
[2022-02-24] MEDS: Enoxaparin Sodium 40 MG/0.4 ML SYRINGE SC SCH (08:56)
[2022-02-24] MEDS: Metoprolol Tartrate 25 MG TAB PO SCH ×2 (08:57→21:21)
[2022-02-24] MEDS: Furosemide 40 MG/4 ML VIAL SLOW IVP SCH ×2 (08:57→13:22)
[2022-02-24] MEDS: Vancomycin 1.5 GRAM/300 ML BAG 1.5 GM in Premix Bag 1 BAG IVPB SCH (12:28)
[2022-02-24] MEDS: Vancomycin 1 GM in Premix Bag 1 BAG IVPB SCH ×2 (13:21→21:21)
[2022-02-24] MEDS: guaiFENesin/Codeine 200 mg/20 mg 10 ml Cup PO PRN ×2 (13:30→21:21)
[2022-02-24] MEDS: Azithromycin 250 MG TAB PO SCH (14:30)
[2022-02-24] MEDS: Diphenoxylate HCl/Atropine Tablet PO PRN (18:05)
[2022-02-24] MEDS: Finasteride 5 MG TAB PO SCH (18:05)
[2022-02-24] MEDS: (Osimertinib Mesylate [Tagrisso] 80 MG Tablet) PO SCH (18:05)
[2022-02-24] MEDS: Tamsulosin HCl 0.4 MG CAP PO SCH (21:21)
[2022-02-24] MEDS: Zolpidem Tartrate 5 MG TAB PO PRN (22:32)
[2022-02-25] MEDS: Vancomycin 1 GM in Premix Bag 1 BAG IVPB SCH ×3 (04:28→20:46)
[2022-02-25 05:23] LABS: ALT (SGPT) 24 U/L (8-55); AST (SGOT) 29 U/L (5-34); Albumin 2.7 g/dL (3.4-4.8); Alkaline Phosphatase 67 U/L (40-110); Anion Gap 11 mmol/L (10-20); BUN (Urea Nitrogen) 9 mg/dL (8.4-25.7); Bilirubin, Total 0.5 mg/dL (0.2-1.2); Calc. Creatinine Clearance 100 mL/min (70-130); Calcium 8.2 mg/dL (7.8-10.44); Carbon Dioxide 32 mmol/L (23-31); Chloride 92 mmol/L (98-107); Estimated GFR 100; Globulin 3.2 g/dL (2.4-3.5); Glucose 107 mg/dL (80-115); Magnesium 1.7 mg/dL (1.6-2.6); Potassium 3.8 mmol/L (3.5-5.1); Protein, Total 5.9 g/dL (5.8-8.1); Sodium 131 mmol/L (136-145)
[2022-02-25 05:30] LABS: Band 3 % (5-11); Eosinophils 1 % (0-10); Hemoglobin 12.1 g/dL (14.0-18.0); Lymphocytes 6 % (21-51); MDiff Complete? YES; Mean Corpuscular HGB CONC 32.5 g/dL (32.0-36.0); Mean Corpuscular Hemoglobin 30.2 pg (27.0-31.0); Mean Corpuscular Volume 92.8 fl (78.0-98.0); Mean Platelet Volume 7.3 fL (7.4-10.4); Monocytes 17 % (0-10); Neutrophil 73 % (42-75); Platelet Count 267 10x3/uL (130-400); RBC Distribution Width 12.8 % (11.5-14.5); Red Blood Cell (RBC) Count 4.01 mill/uL (4.70-6.10); White Blood Cell (WBC) Count 7.5 10x3/uL (4.8-10.8)
[2022-02-25] MEDS: Cefepime 2 GM in Sodium Chloride 0.9% 100 ML IVPB SCH ×2 (06:17→17:21)
[2022-02-25] MEDS: Metoprolol Tartrate 25 MG TAB PO SCH ×2 (08:40→20:52)
[2022-02-25] MEDS: Furosemide 40 MG/4 ML VIAL SLOW IVP SCH (08:40)
[2022-02-25] MEDS: Benzonatate 100 MG CAP PO SCH ×3 (08:40→20:51)
[2022-02-25] MEDS: Enoxaparin Sodium 40 MG/0.4 ML SYRINGE SC SCH (08:41)
[2022-02-25] MEDS ORDERED: Furosemide 40 MG/4 ML VIAL SLOW IVP SCH (14:00)
[2022-02-25] MEDS: Azithromycin 250 MG TAB PO SCH (14:25)
[2022-02-25] MEDS: Finasteride 5 MG TAB PO SCH (17:20)
[2022-02-25] MEDS: (Osimertinib Mesylate [Tagrisso] 80 MG Tablet) PO SCH (17:20)
[2022-02-25] MEDS: Diphenoxylate HCl/Atropine Tablet PO PRN (17:20)
[2022-02-25] MEDS: guaiFENesin/Codeine 200 mg/20 mg 10 ml Cup PO PRN (17:32)
[2022-02-25 20:15] LABS: Vancomycin, Trough 22.4 ug/mL
[2022-02-25] MEDS: Tamsulosin HCl 0.4 MG CAP PO SCH (20:52)
[2022-02-25] MEDS: Zolpidem Tartrate 5 MG TAB PO PRN (22:32)
[2022-02-25] MEDS: Vancomycin HCl 750 MG in Sodium Chloride 0.9% 250 ML 250 ML IVPB SCH (22:32)
[2022-02-26] MEDS: Cefepime 2 GM in Sodium Chloride 0.9% 100 ML IVPB SCH (05:03)
[2022-02-26] MEDS: Vancomycin HCl 750 MG in Sodium Chloride 0.9% 250 ML 250 ML IVPB SCH (06:47)
[2022-02-26] MEDS: Furosemide 40 MG/4 ML VIAL SLOW IVP SCH (08:27)
[2022-02-26] MEDS: Benzonatate 100 MG CAP PO SCH (08:27)
[2022-02-26] MEDS: Enoxaparin Sodium 40 MG/0.4 ML SYRINGE SC SCH (08:27)
[2022-02-26] MEDS: Metoprolol Tartrate 25 MG TAB PO SCH (08:28)
[2022-02-26 08:51] LABS: Anion Gap 13 mmol/L (10-20); BUN (Urea Nitrogen) 11 mg/dL (8.4-25.7); Calc. Creatinine Clearance 96 mL/min (70-130); Calcium 8.2 mg/dL (7.8-10.44); Carbon Dioxide 30 mmol/L (23-31); Chloride 94 mmol/L (98-107); Estimated GFR 99; Glucose 104 mg/dL (80-115); Magnesium 1.6 mg/dL (1.6-2.6); Potassium 3.4 mmol/L (3.5-5.1); Sodium 134 mmol/L (136-145)
[2022-02-26] MEDS ORDERED: Potassium Chloride 20 MEQ TAB PO SCH (10:45)
[2022-02-26 11:58] VITALS: BP 119/68; TEMP 97.8
[2022-02-26] MEDS ORDERED: Furosemide 20 MG/2 ML VIAL SLOW IVP SCH (12:15)
[2022-02-26] MEDS ORDERED: Isoproterenol 0.2 MG/1 ML AMP ONE (12:45)
== END 2022-02-26 15:00 | disposition home or self-care (01) | DRG 193 ==
LOC: ERS 10:50 → SUATTDRO 10:50 → ERHOLD 14:27 → 2NO 18:34
PROVIDERS: ADMIT Internal Medicine; ATTEND Internal Medicine
DX: J18.9 Pneumonia, unspecified organism (principal); I50.33 Acute on chronic diastolic (congestive) heart failure; E87.1 Hypo-osmolality and hyponatremia; Z20.822 Contact with and (suspected) exposure to COVID-19; N40.0 Benign prostatic hyperplasia without lower urinary tract symptoms; I10 Essential (primary) hypertension; R49.0 Dysphonia; Z85.118 Personal history of other malignant neoplasm of bronchus and lung; Z92.21 Personal history of antineoplastic chemotherapy; Z92.3 Personal history of irradiation
CPT/HCPCS: 36415; 71045; 71275; 80048; 80053; 80061; 80202; 81003; 81015; 82553; 83036; 83605; 83735; 83880; 84145; 84484; 85025; 85379; 85610; 85730; 86140; 87040; 87070; 87086; 87205; 87449; 87899; 93005; 93306; 94640; 96365; 96367; 96372; 96375; J0692; J1650; J1940; J2543; J3370; J3370-JW; J3490; J7050; J7620; Q9967